=== PATIENT | male | born 1980 | race Caucasian/White ===

== ENCOUNTER 2025-05-06 15:16 | Outpatient (BNV) | payer MEDICAID, SELFPAY | END 2025-05-07 18:36 | PROVIDERS: Admitting Provider Psychiatry & Neurology Psychiatry; PCP Dentist General Practice; Visit Provider Internal Medicine Cardiovascular Disease | DX: R94.31 Abnormal electrocardiogram [ECG] [EKG] (principal); Z13.6 Encounter for screening for cardiovascular disorders | CPT/HCPCS: 93010 ==

== ENCOUNTER 2025-05-06 15:16 | Inpatient (IN) | payer OTHER, SELFPAY ==
--- OUTSIDE RECORDS SUMMARY | 2025-05-05 12:13 | XMS_ITS | Encounter Summary ---
Author Organization [facility] Address [address] [place] [address] Care Team Providers Care Survey Research Analyst Name Role Phone Physician, Pcp Unknown Primary Care Provider Eli vailable Reason for Visit * Reason Comments Suicidal Encounter Details Date Type Department Care Team (Late st Contact Info) Description 05/05/2025 12:13 PM EST - 05/06/2025 2:55 PM EST Emergency [facility] Emergency [address] [place] [id number] Radha Lares MD [address] [place] [id number] Panda Wagner MD [address] [place] [id number] Barbara Young MD [address] [place] [id number] Xavi Puri MD [address] [place] [id number] Severe episode of recurrent major depressive disorder, without psychotic features (CMS/HCC V24, CMS/HCC V28) (Primary Dx); Suicidal ideation Discharge Disposition: Psychiatric Hospital Social History Tobacco Use Types Packs/Day Years Used Date Smoking Tobacco: Never Smokeless Tobacco: Never Tobacco Cessation:Counseling Given: Not Answered Sex and Gender Information Value Date Recorded Sex Assigned at Not on file Legal Sex Male 3:43 PM EDT Gender Identity Not on file Sexual Orientation Not on file documented as of this encounter Last Filed Vital Signs Vital Sign Reading Time Taken Comments Blood Pressure 119/74 05/06/2025 1:35 PM EST Pulse 60 05/06/2025 1:35 PM EST Temperature 36.9 C (98.5 F) 05/06/2025 1:35 PM EST Respiratory Rate 16 05/06/2025 1:35 PM EST Oxygen Saturation 99% 05/06/2025 1:35 PM EST Inhaled Oxygen Concentration - - Weight 99.8 kg (220 lb) 05/05/2025 7:47 PM EST Height 177.8 cm (5' 10 ) 05/05/2025 7:47 PM EST Body Mass Index 31.57 05/05/2025 7:47 PM EST documented in this encounter Functional Status * Calculated C-SSRS Risk Score (Lifetime/Recent) Answer Date of Assessment Author Moderate Risk 05/06/2025 10:14 AM Delmis Jaramillo RN * [place] Suicide Severity Rating Scale (Screener/Recent Self-Report) Question Answer Date of Assessment Author 1. Wish to be (Past 1 Month) Yes 10:14 AM Delmis Wilkins RN 2. Non-Specific Active Suici gomez Thoughts (Past 1 Month) Yes 05/06/2025 10:14 AM Dudley Wilkins RN 3. Active Suicidal Ideation with any Methods (Not Plan) Without Intent to Act (Past 1 Month) Yes 05/06/2025 10:14 AM Delmis Hendrix lt, RN 4. Active Suicidal Ideation with Some Intent to Act, Without Specific Plan (Past 1 Month) No 05/06/2025 10:14 AM Delmis Hendrix lt, RN 5. Active Suicidal Ideation with Specific Plan and Intent (Past 1 Month) No 05/06/2025 10:14 AM Delmis Wilkins RN 6. Suicidal Behavior (Lifetime) No 10:14 AM Delmis Wilkins RN documented as of this encounter Medications at Time of Discharge buPROPion XL (FORFIVO XL) 450 mg 24 hr tablet Take 1 tablet (450 mg total) by mouth 1 (one) time each day. cyclobenzaprine (FLEXERIL) 5 mg tablet Take 1 tablet (5 mg total) by mouth 3 (three) times a day if needed for muscle spasms. hydrOXYzine pamoate (VISTARIL) 25 mg capsule Take 1 capsule (25 mg total) by mouth 2 (two) times a day if needed for anxiety. lamoTRIgine (LaMICtal) 200 mg tablet Take 1 tablet (200 mg total) by mouth 1 (one) time each day. lisinopril (PRINIVIL,ZESTRIL ) 40 mg tablet Take 1 tablet (40 mg total) by mouth 1 (one) time each day. naproxen (NAPROSYN) 500 mg tablet Take 1 tablet (500 mg total) by mouth 2 (two) times a day with meals. nicotine polacrilex (NICORETTE) [address] 1 each (4 mg total) into mouth between cheek and gum every 2 (two) hours if needed. pantoprazole (PROTONIX) 40 mg EC tablet Take 1 tablet (40 mg total) by mouth 2 (two) times a day. QUEtiapine (SEROquel) 25 mg tablet Take 1 tablet (25 mg total) by mouth 3 (three) times a day if needed. documented as of this encounter Discharge Disposition Disposition Code Departure Means Destination [facility] M 5 documented in this encounter Progress Notes * Melania Beasley LCSW - 05/06/2025 11:08 AM EST BED FOUND- Patient accepted to [facility], M3, by Dr. Pruitt, they are requesting and ETA of 3:30pm. * Barbara Young MD - 05/06/2025 8:41 AM EST Dwayne Ngo This patient's care was signed out to me by the offgoing provider. Please see her/his note for further details regarding initial presentation, history of present illness, physical exam, and medical decision making. At time of signout, the following was pending: awaiting voluntary inpatient psychiatric placement; however, crisis wants to be notified and reevaluate him if he wants to leave. ED Course as of 05/06/25 0841 Mon May 05, 2025 1341 UDS negative [AM] 1421 Patient evaluated by workers' compensation commissioner, currently desiring voluntary inpatient psychiatric care. Per crisis, patient changes his mind would require repeat crisis evaluation. [AM] 1502 Creatinine(!): 1.36 Very mildly increased from previous [AM] 1502 Ethanol Level: <3 [AM] 1550 Patient is medically cleared for psychiatric placement [AM] MonMay 06, 2025 0209 Crisis would want to speak with patient if he wants to leave. Patient is currently voluntary for admission, however, should they change their mind, they need to be re-evaluated by the Behavioral Health team to determine if that is appropriate based on their current level of risk and presentation. [EK] 0700 No acute needs during my shift. Patient's care was handed over to the oncoming provider. [EK] 0720 I, Dr. Janak Puri, have received signout for this patient from Dr. Young at 0700 hrs. The patient is currently pending inpatient psychiatric bed search. No issues during my shift. Anticipate sign out to Dr. Wagner at 1700 hrs. [MG] ED Course User Index [AM] Radha Lares MD [EK] Barbara Young MD [MG] Xavi Puri MD Clinical Impressions as of 05/06/25 0841 Severe episode of recurrent major depressive disorder, without psychotic features (CMS/[facility] V24, [facility] V28) Suicidal ideation No orders to display Labs Reviewed COMPREHENSIVE METABOLIC PANEL - Abnormal Result Value Sodium 137 Potassium 4.5 Chloride 104 CO2 28 Anion Gap 5 Glucose 93 BUN 24 Creatinine 1.36 (*) eGFR 65 BUN/Creatinine Ratio 17.6 Calcium 9.3 AST (SGOT) 21 ALT (SGPT) 42 Alkaline Phosphatase 67 Total Protein 7.3 Albumin 4.7 Total Bilirubin 0.5 ACETAMINOPHEN LEVEL - Abnormal Acetaminophen Level <2.0 (*) SALICYLATE LEVEL - Abnormal Salicylate Level <1.7 (*) CBC WITH AUTO DIFFERENTIAL - Abnormal WBC 7.0 RBC 5.30 Hemoglobin 15.2 Hematocrit 44.6 MCV 84.2 MCH 28.7 MCHC 34.1 RDW 11.9 Platelets 278 MPV 9.4 NRBC 0.0 NRBC Absolute 0.00 Neutrophils Relative 67.6 Lymphocytes Relative 24.6 Monocytes Relative 5.0 Eosinophils Relative 1.4 Basophils Relative 0.7 Immature Granulocytes Relative 0.7 Neutrophils Absolute 4.69 Lymphocytes Absolute 1.71 Monocytes Absolute 0.35 Eosinophils Absolute 0.10 Basophils Absolute 0.05 Immature Granulocytes Absolute 0.05 (*) ETHANOL - Normal Ethanol Level <3 DRUG ABUSE SCREEN 8A PANEL, URINE - Normal Amphetamine Screen, Ur Negative Barbiturate Screen, Ur Negative Benzodiazepine Screen, Ur Negative Cocaine Screen, Ur Negative Opiate Screen, Ur Negative Cannabinoid (THC) Screen, Ur Negative Oxycodone Screen, Ur Negative Fentanyl, Ur Negative Narrative: Assay cutoffs: Amphetamines 1000 ng/mL Barbiturates 200 ng/mL Benzodiazepines 200 ng/mL Cocaine 300 ng/mL Fentanyl 1 ng/mL Opiates 300 ng/mL Oxycodone 100 ng/mL THC 50 ng/mL Semi-quantitative assay for screening purposes only. Unconfirmed screening result should not be used for non-medical purposes. *ALTERNATE METHOD CONFIRMATION DONE UPON REQUEST ONLY* BUPRENORPHINE SCREEN, URINE - Normal Buprenorphine Screen Urine Negative Narrative: Assay cutoff 5 ng/mL Semi-quantitative assay for screening purposes only. Unconfirmed screening result should not be used for non-medical purposes. *ALTERNATE METHOD CONFIRMATION DONE UPON REQUEST ONLY* PHENCYCLIDINE, URINE - Normal PCP Scrn, Ur Negative METHADONE SCREEN, URINE - Normal Methadone Screen, Urine Negative CBC AND DIFFERENTIAL Narrative: The following orders were created for panel order CBC and differential. Procedure Abnormality Status --------- ------ CBC auto differential[[id number]] Abnormal Final result Please view results for these tests on the individual orders. Clinical Impression(s): Final diagnoses: [F33.2] Severe episode of recurrent major depressive disorder, without psychotic features ([facility] V24, [facility] V28) [R45.851] Suicidal ideation Send to Specialty Department Previous Medications BUPROPION XL (FORFIVO XL) 450 MG 24 HR TABLET Take 1 tablet (450 mg total) by mouth 1 (one) time each day. CYCLOBENZAPRINE (FLEXERIL) 5 MG TABLET Take 1 tablet (5 mg total) by mouth 3 (three) times a day ifneeded for muscle spasms. HYDROXYZINE PAMOATE (VISTARIL) 25 MG CAPSULE Take 1 capsule (25 mg total) by mouth 2 (two) times a day if needed for anxiety. LAMOTRIGINE (LAMICTAL) 200 MG TABLET Take 1 tablet (200 mg total) by mouth 1 (one) time each day. LISINOPRIL (PRINIVIL,ZESTRIL) 40 MG TABLET Take 1 tablet (40 mg total) by mouth 1 (one) time each day. NAPROXEN (NAPROSYN) 500 MG TABLET Take 1 tablet (500 mg total) by mouth 2 (two) times a day with meals. NICOTINE POLACRILEX (NICORETTE) [address] 1 each (4 mg total) into mouth between cheek and gumevery 2 (two) hours if needed. PANTOPRAZOLE (PROTONIX) 40 MG EC TABLET Take 1 tablet (40 mg total) by mouth 2 (two) times a day. QUETIAPINE (SEROQUEL) 25 MG TABLET Take 1 tablet (25 mg total) by mouth 3 (three) times a day if needed. ED Medication Administration from 05/05/2025 1152 to 05/06/2025 0841 Date/Time Order Dose Route Action Action by 05/05/20252046 EST cyclobenzaprine (FLEXERIL) tablet 5 mg 5 mg oral Given Uday, F 05/05/2025 204 EST hydrOXYzine pamoate (VISTARIL) capsule 25 mg 25 mg oral Given Uday, 05/05/2025 1354 EST pantoprazole (PROTONIX) EC tablet 40 mg 40 mg oral Not Given Saykin, S 05/05/2025 204 EST pantoprazole (PROTONIX) EC tablet 40 mg 40 mg oral Given Uday, F 05/05/2025 1322 EST QUEtiapine (SEROquel) tablet 25 mg 25 mg oral Not Given Saykin, S 05/05/2025 204 EST QUEtiapine (SEROquel) tablet 25 mg 25 mg oral Given Uday, F * Xavi Puri MD - 05/06/2025 7:25 AM EST ED Course as of 05/06/25 1115 Mon May 05, 2025 1341 UDS negative [AM] 1421 Patient evaluated by workers' compensation commissioner, currently desiring voluntary inpatient psychiatric care. Per crisis, patient changes his mind would require repeat crisis evaluation. [AM] 1502 Creatinine(!): 1.36 Very mildly increased from previous [AM] 1502 Ethanol Level: <3 [AM] 1550 Patient is medically cleared for psychiatric placement [AM] MonMay 06, 2025 0209 Crisis would want to speak with patient if he wants to leave. Patient is currently voluntary for admission, however, should they change their mind, they need to be re-evaluated by the Behavioral Health team to determine if that is appropriate based on their current level of risk and presentation. [EK] 0700 No acute needs during my shift. Patient's care was handed over to the oncoming provider. [EK] 0720 I, Dr. Janak Puri, have received signout for this patient from Dr. Young at 0700 hrs. The patient is currently pending inpatient psychiatric bed search. [MG] 1114 Patient accepted to [facility] during my shift, transport booked for 1530 hrs. [MG] ED Course User Index [AM] Radha Lares MD [EK] Barbara Young MD [MG] Xavi Puri MD Clinical Impressions as of 05/06/25 1115 Severe episode of recurrent major depressive disorder, without psychotic features (CMS/HCC V24, CMS/HCC V28) Suicidal ideation Send to Specialty Department 1. Severe episode of recurrent major depressive disorder, without psychotic features (CMS/HCC V24, CMS/HCC V28) 2. Suicidal ideation Procedures Dwayne Ngo * Panda Wagner MD - 05/06/2025 1:20 AM EST Dwayne Ngo Pt awaiting bed availability for voluntary psych admission. No significant events on my shift. Of note, if pt changes mind and wants to leave, Crisis requesting to re-eval pt before discharge * Cindy Malagon RN - 05/05/2025 12:13 PM EST Patient giselle coming from [facility] has been having suicidal ideation for one week without plan. Patient states he is waiting on bed at [facility]. * Radha Lares MD - 05/05/2025 11:52 AM EST Images from the original note were not included. [facility] EMERGENCY EMERGENCY DEPARTMENT ENCOUNTER Patient: Dwayne Ngo MR# [id number] Time of Service: 05/05/2025 12:13 PM History PCP: Pcp Unknown Physician. Chief Complaint Patient presents with Suicidal Dwayne Ngo is a 44 y.o. male with history of bipolar disorder who presents to the ED with chief complaint Suicidal . Patient states that his mental health has been worsening over the last 7 to 10 days. States his depression has been worsening significantly and he is having thoughts of suicide. Describes this as not wanting to be here anymore. He denies plan at this time. States that he is on multiple medications for mental health which he is compliant with but symptoms have been worsening despite this. States he has been drinking more than usual. He denies drug use, states he is been clean for 2 years. [facility] ROS Negative except for HPI. Allergies: Penicillins Medical History[1] Problem List[2] Surgical History[3] Family History[4] Social History[5] Physical Exam Vitals: 05/05/25 1233 BP: 104/77 Pulse: 100 Resp: 18 Temp: 36.4 ??C (97.5 ??F) SpO2: 99% General Appearance: No acute distress Skin: Dry Eyes: EOMI, no scleral icterus HENT: Normocephalic, atraumatic, moist mucous membranes Neck: Supple, normal range of motion Cardiovascular: Regular rate and rhythm, no murmur, 2+ radial pulses Respiratory: Lungs clear to auscultation bilaterally, no respiratory distress, no wheezing or rhonchi Abdomen: Soft, non-tender, non-distended MSK: No edema or tenderness Neurologic: Awake, alert, no obvious deficits, moving all extremities Psychiatric: Appropriate, cooperative, flat affect Results Results for orders placed or performed during the hospital encounter of 05/05/25 Drug abuse screen 8a panel, urine Collection Time: 05/05/25 12:20 PM Result Value Ref Range Amphetamine Screen, Ur Negative Negative Barbiturate Screen, Ur Negative Negative Benzodiazepine Screen, Ur Negative Negative Cocaine Screen, Ur Negative Negative Opiate Screen, Ur Negative Negative Cannabinoid (THC) Screen, Ur Negative Negative Oxycodone Screen, Ur Negative Negative Fentanyl, Ur Negative Negative Buprenorphine screen, urine Collection Time: 05/05/25 12:20 PM Result Value Ref Range Buprenorphine Screen Urine Negative Negative Phencyclidine, urine Collection Time: 05/05/25 12:20 PM Result Value Ref Range PCP Scrn, Ur Negative Negative Methadone, urine Collection Time: 05/05/25 12:20 PM Result Value Ref Range Methadone Screen, Urine Negative Negative Comprehensive metabolic panel Collection Time: 05/05/25 12:47 PM Result Value Ref Range Sodium 137 133 - 145 mmol/L Potassium 4.5 3.5 - 5.5 mmol/L Chloride 104 96 - 110 mmol/L CO2 28 21 - 32 mmol/L Anion Gap 5 3 - 11 Glucose 93 70 - 100 mg/dL BUN 24 5 - 25 mg/dL Creatinine 1.36 (H) 0.70 - 1.30 mg/dL eGFR 65 >=60 mL/min/1.73m2 BUN/Creatinine Ratio 17.6 Calcium 9.3 8.5 - 10.5 mg/dL AST (SGOT) 21 10 - 42 unit/L ALT (SGPT) 42 10 - 60 unit/L Alkaline Phosphatase 67 42 - 121 unit/L Total Protein 7.3 6.0 - 8.0 g/dL Albumin 4.7 3.2 - 5.0 g/dL Total Bilirubin 0.5 0.0 - 1.4 mg/dL Ethanol Collection Time: 05/05/25 12:47 PM Result Value Ref Range Ethanol Level <3 0 - 10 mg/dL Acetaminophen level Collection Time: 05/05/25 12:47 PM Result Value Ref Range Acetaminophen Level <2.0 (L) 10.0 - 30.0 mcg/mL Salicylate level Collection Time: 05/05/25 12:47 PM Result Value Ref Range Salicylate Level <1.7 (L) 2.0 - 29.0 mg/dL CBC auto differential Collection Time: 05/05/25 12:47 PM Result Value Ref Range WBC 7.0 4.8 - 10.8 K/mcL RBC 5.30 4.50 - 5.50 M/mcL Hemoglobin 15.2 13.5 - 17.5 g/dL Hematocrit 44.6 42.0 - 54.0 % MCV 84.2 79.0 - 98.0 FL MCH 28.7 27.0 - 32.0 pcg MCHC 34.1 32.0 - 37.0 g/dL RDW 11.9 11.0 - 15.0 % Platelets 278 130 - 400 K/mcL MPV 9.4 7.0 - 11.0 FL NRBC 0.0 <1.0 % NRBC Absolute 0.00 <0.10 K/mcL Neutrophils Relative 67.6 % Lymphocytes Relative 24.6 % Monocytes Relative 5.0 % Eosinophils Relative 1.4 % Basophils Relative 0.7 % Immature Granulocytes Relative 0.7 % Neutrophils Absolute 4.69 1.50 - 7.00 K/mcL Lymphocytes Absolute 1.71 1.00 - 5.00 K/mcL Monocytes Absolute 0.35 0.20 - 1.00 K/mcL Eosinophils Absolute 0.10 0.00 - 0.50 K/mcL Basophils Absolute 0.05 0.00 - 0.20 K/mcL Immature Granulocytes Absolute 0.05 (H) 0.00 - 0.03 K/mcL No orders to display Procedures Medical Decision Making 44-year-old male presenting due to suicidal ideation and worsening depression despite medication compliance. Plan for psychiatric screening labs, will have crisis evaluate. Labs ordered in ED independently reviewed by me. My interpretation of the labs and/or imaging per ED course. Medications Administered Medications cyclobenzaprine (FLEXERIL) tablet 5 mg (has no administration in time range) naproxen (NAPROSYN) tablet 500 mg (has no administration in time range) hydrOXYzine pamoate (VISTARIL) capsule 25 mg (has no administration in time range) buPROPion XL (WELLBUTRIN XL) 24 hr tablet 450 mg (has no administration in time range) lamoTRIgine (LaMICtal) tablet 200 mg (has no administration in time range) lisinopriL (PRINIVIL,ZESTRIL) tablet 40 mg (has no administration in time range) nicotine polacrilex (NICORETTE) gum 4 mg (has no administration in time range) pantoprazole (PROTONIX) EC tablet 40 mg (40 mg oral Not Given 05/05/25 0974) QUEtiapine (SEROquel) tablet 25 mg (25 mg oral Not Given 05/05/25 1322) ED Course as of 05/05/251923 Mon May 05, 2025 1341 UDS negative [AM] 1421 Patient evaluated by workers' compensation commissioner, currently desiring voluntary inpatient psychiatric care. Per crisis, patient changes his mind would require repeat crisis evaluation. [AM] 1502 Creatinine(!): 1.36 Very mildly increased from previous [AM] 1502 Ethanol Level: <3 [AM] 1550 Patient is medically cleared for psychiatric placement [AM] ED Course User Index [AM] Radha Lares MD Clinical Impressions as of 05/05/251923 Severe episode of recurrent major depressive disorder, without psychotic features (CMS/HCC V24, CMS/HCC V28) Suicidal ideation External Charts Reviewed: medication list Discussed management with other providers: transfer and line up worker Disposition: Pending inpatient psych CLINICAL IMPRESSION: 1. Severe episode of recurrent major depressive disorder, without psychotic features (CMS/HCC V24, CMS/HCC V28) 2. Suicidal ideation 05/05/2025 MD Radha Gurrola MD 05/05/25 1235 Radha Lares MD 05/05/25 1422 [1] Past Medical History: Diagnosis Date Hypertension [2] There is no problem list on file for this patient. [3] History reviewed. No pertinent surgical history. [4] No family history on file. [5] Social History Tobacco Use Smoking status: Never Smokeless tobacco: Never Radha Lares MD 05/05/251923 documented in this encounter Consult Notes * Kelsi Villaseñor - 05/05/2025 2:15 PM ESTAssociated Order(s): IP CONSULT TO HOSPITAL EDUCATOR Images from the original note were not included. Behavioral Health Services - Crisis Assessment Important times Time of arrival: 12:08 Time of referral: 12:30 Time of readiness: 13:00 Time assessment started: 13:15 Time of disposition: 14:00 Location: [facility] ED Consulted case with: Melania Beasley LCSW Insurance information: Insurance: [facility] Verified by: Melania Beasley - [facility] [place] Reason for Consultation / Presenting Problem: Dwayne Ngo is being seen today for a consultive service at the request of Radha Lares MD to assess risk and identify appropriate level of care. Patient reports feeling depressed and low. Patient states, I do not want to wake up, I don't want to bearound. Patient states, I don't know how to say it, I don't have a specific plan. I'm really low.I hate myself. Patient has made two prior attempts over twenty years ago. Once by taking medication and the other by carbon monoxide. When asked if patient has thoughts of hurting anyone else, patient replied no. Patient denies auditory and visual hallucinations. Patient states, when I get likethis I just know I need to be somewhere safe. Staff at [facility] where patient has been a resident for over a year are also recommending inpatient treatment. History of Present Illness: Dwayne is a 44 y.o. male with Chief Complaint Patient presents with Suicidal Social/Educational History: Guardian - if Yes, provide contact information: self Status: none State Agency Involvement: midway through [facility] application Bhupinder's Order: none Marital Status: single Alternative Placement Details: none Living Situation for patient: [facility] Resident for over a year. [phone] Friendships/Family/Social Peer Support/Relationships: None reported Highest level of education: Some college Comments (Include Learning Needs): None reported Occupation: None reported Employment/Extracurricular Activities/Hobbies: None reported Limitations of Daily Activities: None reported Strengths/Supports: Patient is helpseeking and has maintained engagement with residential and outpatient providers for over a year. Collaterals, contact information, and engagement level: Therapist: Eleni Portillo - Biweekly through [facility]. Next appointment on the 05/16 last saw a week ago. Psychiatrist: Psychiatric Nurse Practicioner through [facility]. PCP: Dr. Blanco from [facility]. Dr. Haroired believe case being transferred within [facility]. Family: not reported Other: not reported Contacted counselor at the [facility], Ata Cho [phone]. He states that patient has been preoccupied and depressed lately. He has not been as engaged as previously. Alluded to April being a time of year of previous trauma for patient, during which patient typically struggles. Stated clinical director and staff were recommending inpatient treatment and tried to admit patient directly to [facility] who referred to [facility] for medical clearance. Spoke with intake staff at [facility], who did not have record of patient as an intake. No crisis assessment of patient from [facility]. [facility] Crisis [phone] has assessed patient three times in 2023. Last two were a part of the co-response team when patient called himself due to suicidal ideation. [facility]. Patient similarly reported depressed mood, and suicidal ideation with no active plan. Patient denied auditory and visual hallucinations then, but appeared to be responding to internal stimuli. Patient was transported to [facility] for most recent previous assessment. Mental Status Speech: WNL Eye Contact: WNL Motor Activity: WNL Mood: Depressed, Pleasant Affect: Flat Sleep: WNL I sleep well Appetite: Poor It's lower than normal. I have been eating less. Memory: Mild Impairment Attention / Concentration: WNL Behavior: Cooperative and Calm Appearance: Appears stated age Hallucinations: None Delusions: None Thought Content: WNL SI: Presence and past attempts. Currently displaying depressed mood and ideation without specific plan. I don't want to be here anymore. I just want to go to sleep and never wake up. I don't have a planspecifically, but I just know when I get like this I need to be somewhere safe. HI: Denied Thought Process: WNL Orientation Impairment: None Insight: WNL Judgment: WNL Impulse Control: WNL Substance Use History (Including family history): 10 years ago patient reports using opiates and cocaine. A year and half ago patient reports stopping drinking alcohol and using cannabis. Patient reports he is in a zero tolerance housing program andhas maintained his sobriety. Previous assessment reports father struggled with unspecified addiction. Utox Results: Negative for all substances and BAL <3 Substance Use Treatment History: In [facility] [place] presently Mental Health Treatment History: Outpatient Mental Health Treatment: Patient sees a therapist named Eleni Hammond and has for over a year through [facility]. Patient also reports seeing a psychiatric nurse practicioner for psychiatric medications. Previous or Current Psychological Diagnosis: Bipolar Disorder (patient reports previous diagnoses),Depression Prior Psychiatric Hospitalizations/Residential Treatment Facilities: I've been lots of places [facility] x3 Other Comments Regarding Mental Health Treatment History: None reported Mental Health Concerns in Family: Previous assessment indicates mother had mental health issues. Trauma History: Previous reports indicate trauma around housing Medications: Scheduled Meds: MEDSSCHEDULED[1] Continuous Infusions: MEDSCONTINUOUS[2] PRN Meds: MEDSPRN[3] Risk Assessment: Self-Harm: None Suicidal Behavior: Past Two attempts over 20 years ago once by pill overdose and once by carbon monoxide poisoning. Homicidal Behavior: None Physical Assault: None Physical Aggression: None Property Damage: None Verbal Aggression: None Family history of suicide: Patient states no family members have attempted suicide. Protective Factors: Patient is help seeking and has maintained engagement with the [facility] [place] for over a year. Patient has also seen a therapist for over a year. Risk Factors: Past attempts, ideation, mental illness, history of problematic opiate and alcohol use. Suicide Risk: Based on patient's history and current presentation, their level of risk for intentional lethal harm is considered Low Safety Plan Completed: no Patient will remain a voluntary inpatient bed search and will be reassessed if he elects to discharge. Interventions: Risk assessment, active and empathetic listening, validation, collateral contracts Response to interventions: Patient maintained focus and even affect while answering questions. DSM-5TR Diagnosis: F33.2 Major depressive disorder, recurrent, severe without psychotic features Plan: Patient meets criteria for inpatient hospitalization for safety and containment, mood stabilization, medication evaluation, individual and group therapies, and connection to community providers. Patient is currently voluntary for admission, however, should they change their mind, they need to be re-evaluated by the Behavioral Health team to determine if that is appropriate based on their current level of risk and presentation. Recommendations were discussed with requesting provider. It was a pleasure to assist Dwayne Ngo here at [facility]. This report is written and finalized by: DEJUAN Burton Circuit[employer] Negative Inspector Supervised by Michelle Gonsalez [facility] Behavioral Health Specialist [facility] (Tel): [phone] / : [phone] [1] [START ON 05/06/2025] buPROPion XL, 450 mg, oral, Daily [START ON 05/06/2025] lamoTRIgine, 200 mg, oral, Daily [START ON 05/06/2025] lisinopril, 40 mg, oral, Daily pantoprazole, 40 mg, oral, BID QUEtiapine, 25 mg, oral, TID [2] [3] PRN medications: cyclobenzaprine, hydrOXYzine pamoate, naproxen, nicotine polacrilex Cosigned by TARSHA Zaldivar at 05/05/2025 5:05 PM EST documented in this encounter Plan of Treatment Pending Results Name Type Priority Associated Diagnoses Date /Time ECG 12 lead ECG STAT 05/06/2025 10 :02 AM EST documented as of this encounter Procedures Procedure Name Priority Date/Time Associated Diagnosis Comments ECG 12-LEAD STAT 05/06/2025 10:02 AM EST CBC WITH AUTO DIFFERENTIAL STAT 05/05/2025 12:47 PM EST CBC AND DIFFERENTIAL STAT 05/05/2025 12:47 PM EST ETHANOL STAT 05/05/2025 12:47 PM EST ACETAMINOPHEN LEVEL STAT 05/05/2025 1 2:47 PM EST SALICYLATE LEVEL STAT 05/05/2025 12:4 7 PM EST COMPREHENSIVE METABOLIC PANEL STAT 05/05/2025 12:47 PM EST DRUG ABUSE SCREEN 8A PANEL, URINE STAT 05/05/2025 12:20 PM EST BUPRENORPHINE SCREEN, URINE STAT 05/05/2025 12:20 PM EST METHADONE SCREEN, URINE STAT 05/05/2025 12:20 PM EST PHENCYCLIDINE, URINE STAT 05/05/2025 12:20 PM EST documented in this encounter Results * (ABNORMAL) CBC auto differential (05/05/2025 12:47 PM EST) [facility] WBC 7.0 4.8 - 10.8 K/mcL LAB HEMETOLOGY METHOD 05/05/2025 1:39 PM [facility] RBC 5.30 4.50 - 5.50 M/mcL LAB HEMETOLOGY METHOD 05/05/2025 1:39 PM [facility] Hemoglobin 15.2 13.5 - 17.5 g/dL LAB HEMETOLOGY METHOD 05/05/2025 1:39 PM [facility] Hematocrit 44.6 42.0 - 54.0 % LAB HEMETOLOGY METHOD 05/05/2025 1:39 PM [facility] MCV 84.2 79.0 - 98.0 FL LAB HEMETOLOGY METHOD 05/05/2025 1:39 PM [facility] MCH 28.7 27.0 - 32.0 pcg LAB HEMETOLOGY METHOD 05/05/2025 1:39 PM [facility] MCHC 34.1 32.0 - 37.0 g/dL LAB HEMETOLOGY METHOD 05/05/2025 1:39 PM [facility] RDW 11.9 11.0 - 15.0 % LAB HEMETOLOGY METHOD 05/05/2025 1:39 PM [facility] Platelets 278 130 - 400 K/mcL LAB HEMETOLOGY METHOD 05/05/2025 1:39 PM [facility] MPV 9.4 7.0 - 11.0 FL LAB HEMETOLOGY METHOD 05/05/2025 1:39 PM [facility] NRBC 0.0 <1.0 % LAB HEMETOLOGY METHOD 05/05/2025 1:39 PM [facility] NRBC Absolute 0.00 <0.10 K/mcL LAB HEMETOLOGY METHOD 05/05/2025 1:39 PM [facility] Neutrophils Relative 67.6 % LAB HEMETOLOGY METHOD 05/05/2025 1:39 PM [facility] Lymphocytes Relative 24.6 % LAB HEMETOLOGY METHOD 05/05/2025 1:39 PM [facility] Monocytes Relative 5.0 % LAB HEMETOLOGY METHOD 05/05/2025 1:39 PM [facility] Eosinophils Relative 1.4 % LAB HEMETOLOGY METHOD 05/05/2025 1:39 PM [facility] Basophils Relative 0.7 % LAB HEMETOLOGY METHOD 05/05/2025 1:39 PM [facility] Immature Granulocytes Relative 0.7 % LAB HEMETOLOGY METHOD 05/05/2025 1:39 PM [facility] Neutrophils Absolute 4.69 1.50 - 7.00 K/mcL LAB HEMETOLOGY METHOD 05/05/2025 1:39 PM [facility] Lymphocytes Absolute 1.71 1.00 - 5.00 K/mcL LAB HEMETOLOGY METHOD 05/05/2025 1:39 PM [facility] Monocytes Absolute 0.35 0.20 - 1.00 K/mcL LAB HEMETOLOGY METHOD 05/05/2025 1:39 PM [facility] Eosinophils Absolute 0.10 0.00 - 0.50 K/mcL LAB HEMETOLOGY METHOD 05/05/2025 1:39 PM [facility] Basophils Absolute 0.05 0.00 - 0.20 K/mcL LAB HEMETOLOGY METHOD 05/05/2025 1:39 PM [facility] Immature Granulocytes Absolute 0.05(H) 0.00 - 0.03 K/mcL LAB HEMETOLOGY METHOD 05/05/2025 1:39 PM [facility] Blood Venous blood specimen / Unknown Venipuncture / Unknown 05/05/2025 12:47 PM EST 05/05/2025 1:17 PM EST us Radha Lares MD LAB BLOOD ORDERABLES Final Resul t Performing Organization Address City/[facility]/ZIP Co de Phone Number [facility] [address] [place] [address], [place] [phone] * (ABNORMAL) Salicylate level (05/05/2025 12:47 PM EST) Salicylate Level <1.7(L) 2.0 - 29.0 mg/dL LAB CHEMISTRY METHOD 05/05/2025 2:44 PM EST [facility] Blood Venous blood specimen / Unknown Venipuncture / Unknown 05/05/2025 12:47 PM EST 05/05/2025 1:17 PM EST us Radha Lares MD LAB BLOOD ORDERABLES Final Resul t Performing Organization Address City/[facility]/ZIP Co de Phone Number [facility] [address] [place] [address], [place] [phone] * (ABNORMAL) Acetaminophen level (05/05/2025 12:47 PM EST) Acetaminophen Level <2.0(L) 10.0 - 30.0 mcg/mL LAB CHEMISTRY METHOD 05/05/2025 3:07 PM EST [facility] Blood Venous blood specimen / Unknown Venipuncture / Unknown 05/05/2025 12:47 PM EST 05/05/2025 1:17 PM EST us Radha Lares MD LAB BLOOD ORDERABLES Final Resul t Performing Organization Address City/[facility]/ZIP Co de Phone Number [facility] [address] [place] [address], [place] [phone] * Ethanol (05/05/2025 12:47 PM EST) Ethanol Level <3 0 - 10 mg/dL LAB CHEMISTRY METHOD 05/05/2025 2:44 PM [facility] Blood Venous blood specimen / Unknown Venipuncture / Unknown 05/05/2025 12:47 PM EST 05/05/2025 1:17 PM EST us Radha Lares MD LAB BLOOD ORDERABLES Final Resul t [facility] [address] [place] [address], * (ABNORMAL) Comprehensive metabolic panel (05/05/2025 12:47 PM EST) [facility] Sodium 137 133 - 145 mmol/L LAB CHEMISTRY METHOD 05/05/2025 2:47 PM [facility] Potassium 4.5 3.5 - 5.5 mmol/L LAB CHEMISTRY METHOD 05/05/2025 2:47 PM [facility] Chloride 104 96 - 110 mmol/L LAB CHEMISTRY METHOD 05/05/2025 2:47 PM [facility] CO2 28 21 - 32 mmol/L LAB CHEMISTRY METHOD 05/05/2025 2:47 PM [facility] Anion Gap 5 3 - 11 LAB CHEMISTRY METHOD 05/05/2025 2:47 PM [facility] Glucose 93 70 - 100 mg/dL LAB CHEMISTRY METHOD 05/05/2025 2:47 PM [facility] BUN 24 5 - 25 mg/dL LAB CHEMISTRY METHOD 05/05/2025 2:47 PM [facility] Creatinine 1.36(H) 0.70 - 1.30 mg/dL LAB CHEMISTRY METHOD 05/05/2025 2:47 PM [facility] eGFR 65 >=60 mL/min/1. 73m2 LAB CHEMISTRY METHOD 05/05/2025 2:47 PM [facility] Comment:Calculation based on the Chronic Kidney Disease Epidemiology Collaboration (CKD-EPI) equation refit without adjustment for race. BUN/Creatinine Ratio 17.6 LAB CHEMISTRY METHOD 05/05/2025 2:47 PM [facility] Calcium 9.3 8.5 - 10.5 mg/dL LAB CHEMISTRY METHOD 05/05/2025 2:47 PM [facility] AST (SGOT) 21 10 - 42 unit/L LAB CHEMISTRY METHOD 05/05/2025 2:47 PM [facility] ALT (SGPT) 42 10 - 60 unit/L LAB CHEMISTRY METHOD 05/05/2025 2:47 PM [facility] Alkaline Phosphatase 67 42 - 121 unit/L LAB CHEMISTRY METHOD 05/05/2025 2:47 PM [facility] Total Protein 7.3 6.0 - 8.0 g/dL LAB CHEMISTRY METHOD 05/05/2025 2:47 PM [facility] Albumin 4.7 3.2 - 5.0 g/dL LAB CHEMISTRY METHOD 05/05/2025 2:47 PM [facility] Total Bilirubin 0.5 0.0 - 1.4 mg/dL LAB CHEMISTRY METHOD 05/05/2025 2:47 PM [facility] Blood Venous blood specimen / Unknown Venipuncture / Unknown 05/05/2025 12:47 PM EST 05/05/2025 1:17 PM EST us Radha Lares MD LAB BLOOD ORDERABLES Final Resul t [facility] [address] [place] [address], * Methadone, urine (05/05/2025 12:20 PM EST) Methadone Screen, Urine Negative Negative LAB CHEMISTRY METHOD 05/05/2025 1:15 PM EST [facility] Comment: Assay cutoff 300 ng/mL Semi-quantitative assay for screening purposes only. Unconfirmed screening result should not be used for non-medical purposes. *ALTERNATE METHOD CONFIRMATION DONE UPON REQUEST ONLY* Urine Urine specimen obtained by clean catch procedure / Unknown Non-blood Collection / Unknown 05/05/2025 12:20 PM EST 05/05/2025 12:36 PM EST us Radha Lares MD LAB URINE ORDERABLES Final Resul t Performing Organization Address [facility] de Phone Number [facility] [address] [place] [address], [place] [phone] * Phencyclidine, urine (05/05/2025 12:20 PM EST) PCP Scrn, Ur Negative Negative LAB CHEMISTRY METHOD 05/05/2025 1:15 PM EST [facility] Comment: Assay cutoff 25 ng/mL Semi-quantitative assay for screening purposes only. Unconfirmed screening result should not be used for non-medical purposes. *ALTERNATE METHOD CONFIRMATION DONE UPON REQUEST ONLY* Urine Urine specimen obtained by clean catch procedure / Unknown Non-blood Collection / Unknown 05/05/2025 12:20 PM EST 05/05/2025 12:36 PM EST us Radha Lares MD LAB URINE ORDERABLES Final Resul t Performing Organization Address [facility] de Phone Number [facility] [address] [place] [address], [place] [phone] * Buprenorphine screen, urine (05/05/2025 12:20 PM EST) Buprenorphine Screen Urine Negative Negative LAB CHEMISTRY METHOD 05/05/2025 1:15 PM EST [facility] Urine Urine specimen obtained by clean catch procedure / Unknown Non-blood Collection / Unknown 05/05/2025 12:20 PM EST 05/05/2025 12:36 PM EST Narrative [facility] - 05/05/2025 1:15 PM EST Assay cutoff 5 ng/mL Semi-quantitative assay for screening purposes only. Unconfirmed screening result should not be used for non-medical purposes. *ALTERNATE METHOD CONFIRMATION DONE UPON REQUEST ONLY* Radha Lares MD LAB URINE ORDERABLES Final Resul t [facility] [address] [place] [address], * Drug abuse screen 8a panel, urine (05/05/2025 12:20 PM EST) Amphetamine Screen, Ur Negative Negative LAB CHEMISTRY METHOD 05/05/2025 1:15 PM EST [facility] Comment:Certain OTC medicati ons containing ephedrine, phenylephrine, pseudoephedrine and phenylpropanolamine can cause false positive results. Barbiturate Screen, Ur Negative Negative LAB CHEMISTRY METHOD 05/05/2025 1:15 PM EST [facility] Benzodiazepine Screen, Ur Negative Negative LAB CHEMISTRY METHOD 05/05/2025 1:15 PM EST [facility] Cocaine Screen, Ur Negative Negative LAB CHEMISTRY METHOD 05/05/2025 1:15 PM EST [facility] Opiate Screen, Ur Negative Negative LAB CHEMISTRY METHOD 05/05/2025 1:15 PM EST [facility] Cannabinoid (THC) Screen, Ur Negative Negative LAB CHEMISTRY METHOD 05/05/2025 1:15 PM EST [facility] Comment:Specimens from patie nts taking pantoprazole sodium (Protonix) have been shown to produce false positive results. Oxycodone Screen, Ur Negative Negative LAB CHEMISTRY METHOD 05/05/2025 1:15 PM EST [facility] Fentanyl, Ur Negative Negative LAB CHEMISTRY METHOD 05/05/2025 1:15 PM [facility] Urine Urine specimen obtained by clean catch procedure / Unknown Non-blood Collection / Unknown 05/05/2025 12:20 PM EST 05/05/2025 12:36 PM EST Narrative [facility] ([facility]) [facility] - 05/05/2025 1:15 PM EST Assay cutoffs: Amphetamines 1000 ng/mL Barbiturates 200 ng/mL Benzodiazepines 200 ng/mL Cocaine 300 ng/mL Fentanyl 1 ng/mL Opiates 300 ng/mL Oxycodone 100 ng/mL THC 50 ng/mL Semi-quantitative assay for screening purposes only. Unconfirmed screening result should not be used for non-medical purposes. *ALTERNATE METHOD CONFIRMATION DONE UPON REQUEST ONLY* us Radha Lares MD LAB URINE ORDERABLES Final Resul t [facility] ([facility]) [facility] [address] [place] [address], documented in this encounter Visit Diagnoses Diagnosis Severe episode of recurrent major depressive disorder, without psychotic features (CMS/HCC V24, CMS/HCC V28)- Primary Suicidal ideation documented in this encounter Administered Medications Inactive Administered Medications - up to 3 most recent administrations Medication Order MAR Action Action Date Dose Rate Site buPROPion XL (WELLBUTRIN XL) 24 hr tablet 450 mg 450 mg, oral, Daily, First dose on Mon05/06/25 at 0900, Do not crush, chew, or split. Given 05/06/2025 8:45 AM EST 450 mg cyclobenzaprine (FLEXERIL) tablet 5 mg 5 mg, oral, 3 times daily PRN, muscle spasms, Starting on Mon05/05/25 at 1236 Given 05/05/2025 8:47 PM EST 5 mg hydrOXYzine pamoate (VISTARIL) capsule 25 mg 25 mg, oral, 2 times daily PRN, itching, Starting on Mon05/05/25 at 1237 Given 05/05/2025 8:47 PM EST 25 mg lamoTRIgine (LaMICtal) tablet 200 mg 200 mg, oral, Daily, First dose on Mon05/06/25 at 0900 Given 05/06/2025 8:46 AM EST 200 mg lisinopriL (PRINIVIL,ZESTRIL) tablet 40 mg 40 mg, oral, Daily, First dose on Mon05/06/25 at 0900 Given 05/06/2025 8:46 AM EST 40 mg naproxen (NAPROSYN) tablet 500 mg 500 mg, oral, 2 times daily PRN, mild pain, Starting on Mon05/05/25 at 1236 pantoprazole (PROTONIX) EC tablet 40 mg 40 mg, oral, 2 times daily, First dose on Mon05/05/25 at 1305, Do not crush, chew, or split. Given 05/06/2025 8:46 AM EST 40 mg Given 05/05/2025 8:41 PM EST 40 mg QUEtiapine (SEROquel) tablet 25 mg 25 mg, oral, 3 times daily, First dose on Mon05/05/25 at 1400 Given 05/06/2025 8:46 AM EST 25 mg Given 05/05/2025 8:41 PM EST 25 mg documented in this encounter Historical Medications * This list may reflect changes made after this encounter. pantoprazole (PROTONIX) 40 mg EC tablet Take 1 tablet (40 mg total) by mouth 2 (two) times a day. QUEtiapine (SEROquel) 25 mg tablet Take 1 tablet (25 mg total) by mouth 3 (three) times a day if needed. nicotine polacrilex (NICORETTE) [address] 1 each (4 mg total) into mouth between cheek and gum every 2 (two) hours if needed. naproxen (NAPROSYN) 500 mg tablet Take 1 tablet (500 mg total) by mouth 2 (two) times a day with meals. lisinopril (PRINIVIL,ZESTRIL ) 40 mg tablet Take 1 tablet (40 mg total) by mouth 1 (one) time each day. lamoTRIgine (LaMICtal) 200 mg tablet Take 1 tablet (200 mg total) by mouth 1 (one) time each day. hydrOXYzine pamoate (VISTARIL) 25 mg capsule Take 1 capsule (25 mg total) by mouth 2 (two) times a day if needed for anxiety. cyclobenzaprine (FLEXERIL) 5 mg tablet Take 1 tablet (5 mg total) by mouth 3 (three) times a day if needed for muscle spasms. buPROPion XL (FORFIVO XL) 450 mg 24 hr tablet Take 1 tablet (450 mg total) by mouth 1 (one) time each day. added in this encounter Active and Recently Administered Medications Due to Daylight Saving Time, this section may contain times in both EDT and EST. Scheduled Medication Order 05/04/2025 05/05/2025 05/06/2025 buPROPion XL (WELLBUTRIN XL) 24 hr tablet 450 mg 450 mg, oral, Daily, First dose on Mon05/06/25 at 0900, Do not crush, chew, or split. 0845 (Given - Provid er: Delmis Martinez RN) lamoTRIgine (LaMICtal) tablet 200 mg 200 mg, oral, Daily, First dose on Mon05/06/25 at 0900 0846 (Given - Provid er: Delmis Martinez, JUSTINE) lisinopriL (PRINIVIL,ZESTRIL) tablet 40 mg 40 mg, oral, Daily, First dose on Mon05/06/25 at 0900 0846 (Given - Provid er: Delmis Martinez RN) pantoprazole (PROTONIX) EC tablet 40 mg 40 mg, oral, 2 times daily, First dose on Mon05/05/25 at 1305, Do not crush, chew, or split. 1354 (Not Given - Provider: Cindy Malagon RN - Reason: Other - Comment: pateint took prior to arrival)2040 (Given - Provider: Dennys Frye RN) 0846 (Given - Provider: Delmis Martinez, JUSTINE) QUEtiapine (SEROquel) tablet 25 mg 25 mg, oral, 3 times daily, First dose on Mon05/05/25 at 1400 1322 (Not Given - Provider: Cindy Malagon RN - Reason: Patient/Resident/Agent refused - education provided - Comment: states he only takes med at [facility])2040 (Given - Provider: Dennys Frye RN) 0846 (Given - Provider: Delmis Martinez, JUSTINE)1332 (Not Given - Provider: Delmis Martinez RN - Reason: Patient/Resident/Agent refused - education provided - Comment: states takes it later in day) PRN Medication Order 05/04/2025 05/05/2025 05/06/2025 cyclobenzaprine (FLEXERIL) tablet 5 mg 5 mg, oral, 3 times daily PRN, muscle spasms, Starting on Mon05/05/25 at 1236 2047 (Given - Provider: Lázaro Frye RN) hydrOXYzine pamoate (VISTARIL) capsule 25 mg 25 mg, oral, 2 times daily PRN, itching, Starting on Mon05/05/25 at 1237 2047 (Given - Provider: Lázaro Frye RN) naproxen (NAPROSYN) tablet 500 mg 500 mg, oral, 2 times daily PRN, mild pain, Starting on Mon05/05/25 at 1236 nicotine polacrilex (NICORETTE) gum 4 mg 4 mg, buccal, Every 2 hours PRN, smoking cessation, Starting on Mon05/05/25 at 1304 documented in this encounter Orders Medications Ordered That Edgar ht Not Have Been Administered Count Last Ordered Date First Ordered Date naproxen (NAPROSYN) tablet 500 mg 1 025 nicotine polacrilex (NICORETTE) gum 4 mg 1 05/05/2025 Consult Count Last Ordered Date First Orde red Date IP CONSULT TO HOSPITAL EDUCATOR 1 05/05/2025 documented in this encounter Care Teams Survey Research Analyst Relationship Specialty Start Date End Date Physician, Pcp Unknown PCP - General 05/05/25 documented as of this encounter
[2025-05-06 16:24] VITALS: BMI 29.1
[2025-05-06 16:49] VITALS: BP 118/66; PULSE 100; RESP 16
--- NOTE | 2025-05-06 17:00 | PC.NURSE ---
Paco was admitted to [facility] at 1525 from [facility] ED for treatment of mood disorder with suicidal ideation. Pt reports he is compliant with prescribed meds, appointments with outpt providers and has maintained sobriety. It's more of a seasonal thing. Changing my meds doesn't help. I just sometimes need a little time in the hospital. Paco reports hx of multiple inpt stays at [facility]. He is currently in the process of getting [facility] services in place. Paco resides at [facility] and is anxious about losing his bed while he is in the hospital. On admission Paco is calm, pleasant and cooperative with admission process. He is fully oriented and denies ideation, plan or intent to harm self or others on the unit. Mood is depressed. Affect is constricted He denies current or hx of hallucinations. He does not appear overtly psychotic. Thought process is slowed but linear. Paco reports poor appetite with 10 lb weight loss. Sleep is good with medications Pt has a hx of substance issues - but has remained clean and sober x the last 1 year. Tox Screen was negative. Paco has hypertension controlled with medications and denies other medical issues. He denies current physical complaint
--- OUTSIDE RECORDS SUMMARY | 2025-05-06 18:09 | XMS_ITS | Clinical Summary ---
Author Organization [facility] Address [address] [place] [address] Phone Care Team Providers Care Hazardous Substances Scientist Name Role Phone Physician, Pcp Unknown Primary Care Provider Eli vailable Allergies Active Allergy Reactions Criticality Noted Date Comments Penicillins Anaphylaxis,Swelling High 10/25/2023 Swelling in throat Medications buPROPion XL (FORFIVO XL) 450 mg 24 hr tablet Take 1 tablet (450 mg total) by mouth 1 (one) time each day. Active cyclobenzaprine (FLEXERIL) 5 mg tablet Take 1 tablet (5 mg total) by mouth 3 (three) times a day if needed for muscle spasms. Active hydrOXYzine pamoate (VISTARIL) 25 mg capsule Take 1 capsule (25 mg total) by mouth 2 (two) times a day if needed for anxiety. Active lamoTRIgine (LaMICtal) 200 mg tablet Take 1 tablet (200 mg total) by mouth 1 (one) time each day. Active lisinopril (PRINIVIL,ZESTR IL) 40 mg tablet Take 1 tablet (40 mg total) by mouth 1 (one) time each day. Active naproxen (NAPROSYN) 500 mg tablet Take 1 tablet (500 mg total) by mouth 2 (two) times a day with meals. Active nicotine polacrilex (NICORETTE) [address] 1 each (4 mg total) into mouth between cheek and gum every 2 (two) hours if needed. Active QUEtiapine (SEROquel) 25 mg tablet Take 1 tablet (25 mg total) by mouth 3 (three) times a day if needed. Active pantoprazole (PROTONIX) 40 mg EC tablet Take 1 tablet (40 mg total) by mouth 2 (two) times a day. Active Encounters Date Type Department Care Team Description 05/05/2025 12:13 PM EST - 05/06/2025 2:55 PM EST Emergency [facility] Emergency [address] [place] [address] Radha Lares MD Wyman, Tim, MD Kokkinos, Erika, MD Goebel, Mathew, MD Severe episode of recurrent major depressive disorder, without psychotic features (CMS/HCC V24, CMS/HCC V28) (Primary Dx); Suicidal ideation Discharge Disposition: [facility] 03/17/2025 12:44 PM EDT - 03/17/2025 1:35 PM EDT Emergency [facility] Emergency [address] [place] [id number] Mike Hernandez MD Tonsillitis (Primary Dx) Discharge Disposition: Home or Self Care from Last 3 Months Medical History Medical History Date Comments Hypertension Social History Tobacco Use Types Packs/Day Years Used Date Smoking Tobacco: Never Smokeless Tobacco: Never Tobacco Cessation:Counseling Given: Not Answered Sex and Gender Information Value Date Recorded Sex Assigned at Not on file Legal Sex Male 3:43 PM EDT Gender Identity Not on file Sexual Orientation Not on file Obstetrics History Last Filed Vital Signs Vital Sign Reading [...] Mass Index 31.57 05/05/2025 7:47 PM EST Plan of Treatment Health Maintenance Due Date Last Done Comments Colorectal Cancer Screening: Colonoscopy 1978 DTaP,Tdap,and Td Vaccines (1 - Tdap) 1997 Hepatitis A Vaccines (1 of 2 - Risk 2-dose series) 1997 Hepatitis B Vaccines (1 of 3 - 19+ 3-dose series) 1997 HIV Screening 04/11/2024 Social Influencers of Health Screening 04/11/2024 Depression Screening 07/03/2024 COVID-19 Vaccine (1 - 2023-2 5 season) 2025 Influenza Vaccine (#1) 2025 Hypertension/CHF/CAD Annual BMP Blood Test 05/05/2026 05/05/2025, 06/07/2024, 10/31/2023 Cholesterol Screening (Lipid Panel) 06/07/2029 06/07/2024, 10/31/2023 RSV Immunization Adult Patients (1 - 1-dose 75+ series) 2053 Hepatitis C Screening Completed 10/31/2023 HIB Vaccines Aged Out No longer eligi ble based on patient's age to complete this topic HPV Vaccines Aged Out No longer eligi ble based on patient's age to complete this topic IPV Vaccines Aged Out No longer eligi ble based on patient's age to complete this topic MMR Vaccines Aged Out No longer eligi ble based on patient's age to complete this topic Meningococcal ACWY Vaccine Aged Out N o longer eligible based on patient's age to complete this topic Meningococcal B Vaccine Aged Out No l onger eligible based on patient's age to complete this topic Pneumococcal Vaccine: Pediatrics (0 to 5 Years) and At-Risk Patients (6 to 49 Years) Aged Out No longer eligible b ased on patient's age to complete this topic RSV Immunization Patients Under 20 months Aged Out No longer eligible b ased on patient's age to complete this topic Varicella Vaccines Aged Out No longer eligible based on patient's age to complete this topic Procedures Procedure Name Priority Date/Time Associated Diagnosis Comments ECG 12-LEAD STAT 05/06/2025 10:02 AM EST CBC WITH AUTO DIFFERENTIAL STAT 05/05/2025 12:47 PM EST SALICYLATE LEVEL STAT 05/05/2025 12:4 7 PM EST ACETAMINOPHEN LEVEL STAT 05/05/2025 1 2:47 PM EST ETHANOL STAT 05/05/2025 12:47 PM EST COMPREHENSIVE METABOLIC PANEL STAT 05/05/2025 12:47 PM EST CBC AND DIFFERENTIAL STAT 05/05/2025 12:47 PM EST METHADONE SCREEN, URINE STAT 05/05/2025 12:20 PM EST PHENCYCLIDINE, URINE STAT 05/05/2025 12:20 PM EST BUPRENORPHINE SCREEN, URINE STAT 05/05/2025 12:20 PM EST DRUG ABUSE SCREEN 8A PANEL, URINE STAT 05/05/2025 12:20 PM EST XR NECK SOFT TISSUE STAT 03/17/2025 1 :11 PM EDT CULTURE THROAT STAT 03/17/2025 12:41 PM EDT RAPID STREP A SCREEN STAT 03/17/2025 12:41 PM EDT LIPID PANEL WITH REFLEX TO DIRECT LDL Routine 06/07/2024 9:22 AM EST Bipolar disorder, unspecified (CMS/HCC V24, CMS/HCC V28) Cocaine abuse, in remission (CMS/HCC V24, CMS/HCC V28) from Last 3 Months or Most Recently Relevant to Health Maintenance Results * (ABNORMAL) CBC auto differential (05/05/2025 12:47 PM EST) WBC 7.0 4.8 - 10.8 K/mcL LAB HEMETOLOGY METHOD 05/05/2025 1:39 PM EST [facility] RBC 5.30 4.50 - 5.50 M/mcL LAB HEMETOLOGY METHOD 05/05/2025 1:39 PM EST [facility] Hemoglobin 15.2 13.5 - 17.5 g/dL LAB HEMETOLOGY METHOD 05/05/2025 1:39 PM [facility] Hematocrit 44.6 42.0 - 54.0 % LAB HEMETOLOGY METHOD 05/05/2025 1:39 PM [facility] MCV 84.2 79.0 - 98.0 FL LAB HEMETOLOGY METHOD 05/05/2025 1:39 PM [facility] MCH 28.7 27.0 - 32.0 pcg LAB HEMETOLOGY METHOD 05/05/2025 1:39 PM [facility] MCHC 34.1 32.0 - 37.0 g/dL LAB HEMETOLOGY METHOD 05/05/2025 1:39 PM [facility] RDW 11.9 11.0 - 15.0 % LAB HEMETOLOGY METHOD 05/05/2025 1:39 PM [facility] Platelets 278 130 - 400 K/mcL LAB HEMETOLOGY METHOD 05/05/2025 1:39 PM [facility] MPV 9.4 7.0 - 11.0 FL LAB HEMETOLOGY METHOD 05/05/2025 1:39 PM [facility] NRBC 0.0 <1.0 % LAB HEMETOLOGY METHOD 05/05/2025 1:39 PM [facility] NRBC Absolute 0.00 <0.10 K/mcL LAB HEMETOLOGY METHOD 05/05/2025 1:39 PM [facility] Neutrophils Relative 67.6 % LAB HEMETOLOGY METHOD 05/05/2025 1:39 PM [facility] Lymphocytes Relative 24.6 % LAB HEMETOLOGY METHOD 05/05/2025 1:39 PM [facility] Monocytes Relative 5.0 % LAB HEMETOLOGY METHOD 05/05/2025 1:39 PM [facility] Eosinophils Relative 1.4 % LAB HEMETOLOGY METHOD 05/05/2025 1:39 PM EST [facility] Basophils Relative 0.7 % LAB HEMETOLOGY METHOD 05/05/2025 1:39 PM [facility] Immature Granulocytes Relative 0.7 % LAB HEMETOLOGY METHOD 05/05/2025 1:39 PM [facility] Neutrophils Absolute 4.69 1.50 - 7.00 K/mcL LAB HEMETOLOGY METHOD 05/05/2025 1:39 PM [facility] Lymphocytes Absolute 1.71 1.00 - 5.00 K/mcL LAB HEMETOLOGY METHOD 05/05/2025 1:39 PM [facility] Monocytes Absolute 0.35 0.20 - 1.00 K/mcL LAB HEMETOLOGY METHOD 05/05/2025 1:39 PM [facility] Eosinophils Absolute 0.10 0.00 - 0.50 K/mcL LAB HEMETOLOGY METHOD 05/05/2025 1:39 PM [facility] Basophils Absolute 0.05 0.00 - 0.20 K/mcL LAB HEMETOLOGY METHOD 05/05/2025 1:39 PM [facility] Immature Granulocytes Absolute 0.05(H) 0.00 - 0.03 K/mcL LAB HEMETOLOGY METHOD 05/05/2025 1:39 PM [facility] Blood Venous blood specimen / Unknown Venipuncture / Unknown 05/05/2025 12:47 PM EST 05/05/2025 1:17 PM EST us Radha Lares MD LAB BLOOD ORDERABLES Final Resul t [facility] [address] [place] [address], * Ethanol (05/05/2025 12:47 PM EST) Ethanol Level <3 0 - 10 mg/dL LAB CHEMISTRY METHOD 05/05/2025 2:44 PM EST [facility] Blood Venous blood specimen / Unknown Venipuncture / Unknown 05/05/2025 12:47 PM EST 05/05/2025 1:17 PM EST us Radha Lares MD LAB BLOOD ORDERABLES Final Resul t Performing Organization Address [facility]/ZIP Co de Phone Number [facility] [address] [place] [address], [place] [phone] * (ABNORMAL) Acetaminophen level (05/05/2025 12:47 PM EST) Acetaminophen Level <2.0(L) 10.0 - 30.0 mcg/mL LAB CHEMISTRY METHOD 05/05/2025 3:07 PM EST [facility] Blood Venous blood specimen / Unknown Venipuncture / Unknown 05/05/2025 12:47 PM EST 05/05/2025 1:17 PM EST us Radha Lares MD LAB BLOOD ORDERABLES Final Resul t Performing Organization Address [facility] Co de Phone Number [facility] [address] [place] [address], [place] [phone] * (ABNORMAL) Salicylate level (05/05/2025 12:47 PM EST) Salicylate Level <1.7(L) 2.0 - 29.0 mg/dL LAB CHEMISTRY METHOD 05/05/2025 2:44 PM EST [facility] Blood Venous blood specimen / Unknown Venipuncture / Unknown 05/05/2025 12:47 PM EST 05/05/2025 1:17 PM EST us Radha Lares MD LAB BLOOD ORDERABLES Final Resul t Performing Organization Address City/[facility]/ZIP Co de Phone Number [facility] [address] [place] [address], [place] [phone] * (ABNORMAL) Comprehensive metabolic panel (05/05/2025 12:47 PM EST) Sodium 137 133 - 145 mmol/L LAB CHEMISTRY METHOD 05/05/2025 2:47 PM [facility] Potassium 4.5 3.5 - 5.5 mmol/L LAB CHEMISTRY METHOD 05/05/2025 2:47 PM [facility] Chloride 104 96 - 110 mmol/L LAB CHEMISTRY METHOD 05/05/2025 2:47 PM [facility] CO2 28 21 - 32 mmol/L LAB CHEMISTRY METHOD 05/05/2025 2:47 PM [facility] Anion Gap 5 3 - 11 LAB CHEMISTRY METHOD 05/05/2025 2:47 PM [facility] Glucose 93 70 - 100 mg/dL LAB CHEMISTRY METHOD 05/05/2025 2:47 PM [facility] BUN 24 5 - 25 mg/dL LAB CHEMISTRY METHOD 05/05/2025 2:47 PM [facility] Creatinine 1.36(H) 0.70 - 1.30 mg/dL LAB CHEMISTRY METHOD 05/05/2025 2:47 PM [facility] eGFR 65 >=60 mL/min/1. 73m2 LAB CHEMISTRY METHOD 05/05/2025 2:47 PM [facility] Comment:Calculation based on the Chronic Kidney Disease Epidemiology Collaboration (CKD-EPI) equation refit without adjustment for race. BUN/Creatinine Ratio 17.6 LAB CHEMISTRY METHOD 05/05/2025 2:47 PM [facility] Calcium 9.3 8.5 - 10.5 mg/dL LAB CHEMISTRY METHOD 05/05/2025 2:47 PM [facility] AST (SGOT) 21 10 - 42 unit/L LAB CHEMISTRY METHOD 05/05/2025 2:47 PM [facility] ALT (SGPT) 42 10 - 60 unit/L LAB CHEMISTRY METHOD 05/05/2025 2:47 PM EST [facility] Alkaline Phosphatase 67 42 - 121 unit/L LAB CHEMISTRY METHOD 05/05/2025 2:47 PM EST [facility] Total Protein 7.3 6.0 - 8.0 g/dL LAB CHEMISTRY METHOD 05/05/2025 2:47 PM EST [facility] Albumin 4.7 3.2 - 5.0 g/dL LAB CHEMISTRY METHOD 05/05/2025 2:47 PM EST [facility] Total Bilirubin 0.5 0.0 - 1.4 mg/dL LAB CHEMISTRY METHOD 05/05/2025 2:47 PM [facility] Blood Venous blood specimen / Unknown Venipuncture / Unknown 05/05/2025 12:47 PM EST 05/05/2025 1:17 PM EST us Radha Lares MD LAB BLOOD ORDERABLES Final Resul t [facility] [address] [place] [address], * Drug abuse screen 8a panel, urine (05/05/2025 12:20 PM EST) Pathologist [facility] [place] Amphetamine Screen, Ur Negative Negative LAB CHEMISTRY METHOD 05/05/2025 1:15 PM [facility] Comment:Certain OTC medicati ons containing ephedrine, phenylephrine, pseudoephedrine and phenylpropanolamine can cause false positive results. Barbiturate Screen, Ur Negative Negative LAB CHEMISTRY METHOD 05/05/2025 1:15 PM EST [facility] Benzodiazepine Screen, Ur Negative Negative LAB CHEMISTRY METHOD 05/05/2025 1:15 PM [facility] Cocaine Screen, Ur Negative Negative LAB CHEMISTRY METHOD 05/05/2025 1:15 PM EST [facility] Opiate Screen, Ur Negative Negative LAB CHEMISTRY METHOD 05/05/2025 1:15 PM EST [facility] Cannabinoid (THC) Screen, Ur Negative Negative LAB CHEMISTRY METHOD 05/05/2025 1:15 PM EST [facility] Comment:Specimens from patie nts taking pantoprazole sodium (Protonix) have been shown to produce false positive results. Oxycodone Screen, Ur Negative Negative LAB CHEMISTRY METHOD 05/05/2025 1:15 PM EST [facility] Fentanyl, Ur Negative Negative LAB CHEMISTRY METHOD 05/05/2025 1:15 PM EST [facility] Urine Urine specimen obtained by clean catch procedure / Unknown Non-blood Collection / Unknown 05/05/2025 12:20 PM EST 05/05/2025 12:36 PM EST [facility] - 05/05/2025 1:15 PM EST Assay [...] MD LAB URINE ORDERABLES Final Resul t [facility] [address] [place] [address], * Buprenorphine screen, urine (05/05/2025 12:20 PM EST) Buprenorphine Screen Urine Negative Negative LAB CHEMISTRY METHOD 05/05/2025 1:15 PM EST [facility] Urine Urine specimen obtained by clean catch procedure / Unknown Non-blood Collection / Unknown 05/05/2025 12:20 PM EST 05/05/2025 12:36 PM EST [facility] - 05/05/2025 1:15 PM EST Assay cutoff 5 ng/mL Semi-quantitative assay for screening purposes only. Unconfirmed screening result should not be used for non-medical purposes. *ALTERNATE METHOD CONFIRMATION DONE UPON REQUEST ONLY* us Radha Lares MD LAB URINE ORDERABLES Final Resul t Performing Organization Address [facility] de Phone Number [facility] [address] [place] [address], [place] [phone] * Methadone, urine (05/05/2025 12:20 PM EST) Methadone Screen, Urine Negative Negative LAB CHEMISTRY METHOD 05/05/2025 1:15 PM EST [facility] Comment: Assay cutoff 300 ng/mL [...] ORDERABLES Final Resul t Performing Organization Address [facility] de Phone Number [facility] [address] [place] [address], [place] [phone] * Phencyclidine, urine (05/05/2025 12:20 PM EST) PCP Scrn, Ur Negative Negative LAB CHEMISTRY METHOD 05/05/2025 1:15 PM EST [facility] Comment: Assay cutoff 25 ng/mL [...] ORDERABLES Final Resul t Performing Organization Address [facility] de Phone Number [facility] [address] [place] [address], * XR Neck Soft Tissue (03/17/2025 1:11 PM EDT) Anatomical Region Laterality Modality Head and Neck Radiographic Ashley ging 03/17/2025 1:20 PM EDT Impressions 03/17/2025 1:21 PM EDT Impression: Patent airway. Normal epiglottis. Telerad ROBY ([id number]) -------- FINAL REPORT -------- Dictated By: Nelly Santillan Dictated Date: 03/17/2025 13:20 ET Assigned Physician: Nelly Santillan Reviewed and Electronically Signed By: Nelly Santillan Signed Date: 03/17/2025 13:21 ET Workstation ID: [id number] Transcribed By: Self Edit Transcribed Date: 03/17/2025 13:20 ET Narrative 03/17/2025 1:21 PM EDT History: Sore throat. Findings: AP and lateral views of the neck are obtained with soft tissue technique. The airway is widely patent. The epiglottis is normal in thickness. The prevertebral soft tissues are unremarkable. The cervical spine demonstrates normal alignment. Disc degenerative changes are noted at C5-C6. Procedure Note Nelly Santillan MD - 03/17/2025 History: Sore throat. Findings: AP and lateral views of the neck are obtained with soft tissuetechnique. The airway is widely patent. The epiglottis is normal in thickness. Theprevertebral soft tissues are unremarkable. The cervical spine demonstrates normal alignment. Disc degenerativechanges are noted at C5-C6. IMPRESSION: Impression: Patent airway. [place]iglott[place] ([id number]) -------- FINAL REPORT -------- Dictated By: Nelly Santillan Dictated Date: 03/17/2025 13:20 ET Assigned Physician: Nelly Santillan Reviewed and Electronically Signed By: Nelly Santillan Signed Date: 03/17/2025 13:21 ET Workstation ID: [id number] Transcribed By: Self Edit Transcribed Date: 03/17/2025 13:20 ET us Mike Hernandez MD IMG XR PROCEDURES Final Res ult * Rapid strep A screen (03/17/2025 12:41 PM EDT) Strep A Ag Negative Negative, Invalid 03/17/2025 1:13 PM EDT [facility] Comment:Refer to Throat Cult ure. Swab Structure of anterior region of neck / Unknown Non-blood Collection / Unknown 03/17/2025 12:41 PM EDT 03/17/2025 12:49 PM EDT Mike Hernandez MD LAB MICROBIOLOGY - GENERAL ORDERABLES Final Result Performing Organization Address [facility]/ZIP Co de Phone Number [facility] [address] [place] [address], [place] [phone] * Culture throat (03/17/2025 12:41 PM EDT) [facility] Culture, Throat No pathogens isolated. 03/19/2025 12:48 PM EDT [facility] Swab Structure of anterior region of neck / Unknown Non-blood Collection / Unknown 03/17/2025 12:41 PM EDT 03/17/2025 12:49 PM EDT Mike Hernandez MD LAB MICROBIOLOGY - GENERAL ORDERABLES Final Result Performing Organization Address City/[facility]/ZIP Co de Phone Number [facility] [address] [place] [address], [place] [phone] * (ABNORMAL) Lipid panel with reflex to direct LDL (06/07/2024 9:22 AM EST) [facility] Cholesterol 208(H) 0 - 200 mg/dL LAB CHEMISTRY METHOD 06/07/2024 10:17 AM EST [facility] Triglycerides 111 0 - 150 mg/dL LAB CHEMISTRY METHOD 06/07/2024 10:17 AM EST [facility] HDL 41 >=40 mg/dL LAB CHEMISTRY METHOD 06/07/2024 10:17 AM [facility] LDL Calculated 145(H) 0 - 100 mg/dL LAB CHEMISTRY METHOD 06/07/2024 10:17 AM [facility] VLDL Cholesterol Christiano 22.2 mg/dL LAB CHEMISTRY METHOD 06/07/2024 10:17 AM [facility] Non HDL Chol. (LDL+VLDL) 167(H) <145 mg/dL LAB CHEMISTRY METHOD 06/07/2024 10:17 AM [facility] Chol/HDL Ratio 5.1(H) 0.0 - 4.4 LAB CHEMISTRY METHOD 06/07/2024 10:17 AM [facility] Blood Venous blood specimen / Unknown Venipuncture / Unknown 06/07/2024 9:22 AM EST 06/07/2024 9:47 AM EST us Shai Ahmadi ARMORING MACHINE OPERATOR LAB BLOOD ORDERABLES F inal Result [facility] [address] [place] [address], [place] [phone] from Last 3 Months or Most Recently Relevant to Health Maintenance Insurance MEDICAID - [place] Care Teams Hazardous Substances Scientist Relationship Specialty Start Date End Date Physician, Pcp Unknown PCP - General 05/05/25
--- OUTSIDE RECORDS SUMMARY | 2025-05-06 18:09 | XMS_ITS | Clinical Summary ---
Author Organization [facility] Address [address] [place] [address] Care Team Providers Care Wheat Buyer Name Role Phone Mike Boss MD Primary Care Provider [phone] Source Comments PLEASE NOTE, if this patient is a minor, it may be UNLAWFUL to discuss sensitive information that is contained in these records (such as FAMILY PLANNING, MENTAL HEALTH or SUBSTANCE ABUSE) with the minor patient's parent or other person without the patient's specific authorization.[facility] Allergies Active Allergy Reactions Criticality Noted Date Comments Penicillins Swelling 10/25/2023 Swelling in throat Medications buPROPion HCL (WELLBUTRIN XL) 300 mg 24 hr tablet TAKE 1 TABLET BY MOUTH ONCE DAILY WITH 150mg TABLET FOR 450mg DAILY 30 Tablet 1 4 Active lamoTRIgine (LAMICTAL) 200 mg tablet Take 1 tablet by mouth at bedtime 30 Tablet 1 4 Active buPROPion XL (WELLBUTRIN XL) 150 mg 24 hr tablet TAKE 1 TABLET BY MOUTH ONCE DAILY WITH 300mg TABLET FOR 450mg DAILY 30 Tablet 1 4 Active QUEtiapine (SEROQUEL) 25 mg tablet Take 25 mg by mouth 3 (three) times daily as needed 5 Active hydrOXYzine pamoate (VISTARIL) 25 mg capsule TAKE 1 CAPSULE BY MOUTH two (2) times a day NEEDED FOR ANXIETY OR FOR SLEEP 5 Active pantoprazole (PROTONIX) 40 mg EC tablet TAKE 1 TABLET BY MOUTH two (2) times a day 60 Tablet 1 5 Active naproxen (NAPROSYN) 500 mg tablet TAKE 1 TABLET BY MOUTH two (2) times a day 60 Tablet 5 5 Active cyclobenzaprine (FLEXERIL) 5 mg tablet TAKE 1 TABLET BY MOUTH 3 (THREE) TIMES A DAY NEEDED FOR MUSCLE SPASM 60 Tablet 5 Active lisinopriL 40 mg tablet TAKE 1 TABLET BY MOUTH ONCE DAILY 30 Tablet 5 Active nicotine, polacrilex, (NICORETTE) 4 mg gumIndications: Nicotine dependence, uncomplicated, unspecified nicotine product type chew AND park 1 PIECE OF gum along cheeks EVERY 2 HOURS 100 Each 5 Active nicotine, polacrilex, (NICORETTE) 4 mg gumIndications: Nicotine dependence, uncomplicated, unspecified nicotine product type chew AND park 1 PIECE OF gum along cheeks EVERY 2 HOURS 100 Each 3 5 025 Discontinued cyclobenzaprine (FLEXERIL) 5 mg tablet TAKE 1 TABLET BY MOUTH 3 (THREE) TIMES A DAY NEEDED FOR MUSCLE SPASM 60 Tablet 5 025 Discontinued lisinopriL 40 mg tablet TAKE 1 TABLET BY MOUTH ONCE DAILY 30 Tablet 5 025 Discontinued Active Problems Problem Noted Date Diagnosed Date Essential hypertension 01/17/2024 Lives in shared accommodation due to homelessnes s 10/25/2023 Severe episode of recurrent major depressive disorder, without psychotic features 10/25/2023 Bipolar 1 disorder, mixed 10/25/2023 Opioid use disorder 10/25/2023 Chronic left-sided low back pain with left-sided sciatica 10/25/2023 Chronic neck pain 10/25/2023 Nicotine dependence 10/25/2023 Class 1 obesity due to exces s calories with serious comorbidity and body mass index (BMI) of 31.0 to 31.9 in adult 10/25/2023 Resolved Problems Problem Noted Date Diagnosed Date Resolved Date Polysubstance dependence 12/11/202405/2025 Overview (12/11/2024): In remission since 2023 Genital warts 09/25/2024 09/25/2024 Overview (09/25/2024): Resolved s/p cryotherapy Social History Tobacco Use Types Packs/Day Years Used Date Smoking Tobacco: Former Cigarettes 0.5 26.6 S tarted: 10/02/1998 Tobacco Cessation:Counseling Given: Not Answered Alcohol Use Standard Drinks/Week Comments Not Currently 0 (1 standard drink = 0.6 oz pur e alcohol) Social Connections Answer Date Recorded Connectedness 0 03/19/2024 Financial Resource Strain Answer Date R ecorded Financial Resource Strain 0 2023 Stress Answer Date Recorded Stress 0 2023 Physical Activity Answer Date Recorded Physical Activity 0 2023 Food Insecurity Answer Date Recorded Food 0 03/28/2024 Transportation Needs Answer Date Record ed Transportation 0 2023 Housing Stability Answer Date Recorded Housing 0 2023 Safety and Environment Answer Date Suhail rded Safety 0 2023 Utilities Answer Date Recorded Utilities 0 2023 Employment Answer Date Recorded Stress 0 03/19/2024 Sex and Gender Information Value Date Recorded Sex Assigned at Male 10/25/2023 6:23 AM PDT Legal Sex Male 7:48 AM PDT Gender Identity Male 10/25/2023 5:51 AM PDT Sexual Orientation Straight 10/25/2023 5: 51 AM PDT Last Filed Vital Signs Vital Sign Reading Time Taken Comments Blood Pressure 132/87 12/11/2024 8:53 AM EDT Pulse 89 12/11/2024 8:53 AM EDT Temperature 36.6 C (97.8 F) 12/11/2024 8:53 AM EDT Respiratory Rate 16 08/28/2024 9:06 AM EST Oxygen Saturation - - Inhaled Oxygen Concentration - - Weight 102.9 kg (226 lb 14.4 oz) 12/11/2024 8:53 AM EDT Height 177.8 cm (5' 10 ) 12/11/2024 8:53 AM EDT Body Mass Index 32.56 12/11/2024 8:53 AM EDT Plan of Treatment Health Maintenance Due Date Last Done Comments Anxiety Screening 1978 Imm-DTaP/Tdap/Td (1 - Tdap) 1997 Imm-Hepatitis B (1 of 3 - 19 + 3-dose series) 1997 CT Colonography 10/17/2023 Colonoscopy 10/17/2023 Colorectal Cancer Screening 10/17/2023 FIT/gFOBT 10/17/2023 Fecal DNA 10/17/2023 Flexible Sigmoidoscopy 10/17/2023 Annual Wellness (Adult): Ind icated (All Coverage) 10/24/2024 10/25/2023 [id number] ( season) 2025 Imm-Influenza (#1) 2025 Depression Monitoring 03/13/2025 12/11/2024 , 02/21/2024, 10/25/2023 Diabetes Screening 06/07/2025 06/07/2024, 1 08/08/2023, 06/07/2024, Additional history exists Lipid Screening 06/07/2025 06/07/2024, 10/31/2023 Tobacco Cessation Counseling (#1) 05/06/2026 12/11/2024, 09/25/2024, 08/28/2024, Additional history exists Tobacco Screening 05/06/2026 05/06/2025, , 09/25/2024, Additional history exists HIV Screening Completed 10/31/2023 Hepatitis C Screening Completed 10/31/2023 Alcohol and Drug Screen Completed 12/11/2024, 10/24 Procedures Procedure Name Priority Date/Time Associated Diagnosis Comments HIV 1/2 AG & AB W/RFLX (4TH GEN) Routine 10/31/2023 8:48 AM EDT Exposure to potential infection HEPATITIS C AB W/RFLX HCV RNA, QT, RT PCR Routine 10/31/2023 8:48 AM EDT Exposure to potential infection COMPREHENSIVE METABOLIC PANEL Routine 10/31/2023 8:48 AM EDT Routine general medical examination at a health care facility LIPIDS W RFLX TO DIRECT LDL Routine 10/31/2023 8:48 AM EDT Routine general medical examination at a health care facility from Last 3 Months or Most Recently Relevant to Health Maintenance Results * HEPATITIS C AB W/RFLX HCV RNA, QT, RT PCR (10/31/2023 8:48 AM EDT) HEPATITIS C ANTIBODY NON-REACT ROHAN NON-REACT ROHAN [facility] Comment: HCV antibody was non-reactive. There is no laboratory evidence of HCV infection. In most cases, no further action is required. However, if recent HCV exposure is suspected, a test for HCV RNA (test code 24733) is suggested. For additional information please refer to http://[employer]/faq/OGJ79q3 (This link is being provided for informational/ educational purposes only.) Blood Blood / Unknown 10/31/2023 8 :48 AM EDT 10/31/2023 8:48 AM EDT Narrative [facility] [employer] - 11/01/2023 8:16 AM EDT FASTING:YES COLLECTION KIT GIVEN TO PATIENT. PATIENT ADVISED TO RETURN. us Mike Boss MD LAB - BLOOD DRAW Final Resul t [facility] [address] [place] [id number], [facility] [address] [place] [id number] * HIV 1/2 AG & AB W/RFLX (4TH GEN) (10/31/2023 8:48 AM EDT) HIV AG/AB, 4TH GEN NON-REAC TIVE NON-REAC TIVE [facility] Comment: HIV-1 antigen and HIV-1/HIV-2 antibodies were not detected. There is no laboratory evidence of HIV infection. PLEASE NOTE: This information has been disclosed to you from records whose confidentiality may be protected by state law. If your state requires such protection, then the state law prohibits you from making any further disclosure of the information without the specific written consent of the person to whom it pertains, or as otherwise permitted by law. A general authorization for the release of medical or other information is NOT sufficient for this purpose. For additional information please refer to http://[employer]/faq/UMB520 (This link is being provided for informational/ educational purposes only.) The performance of this assay has not been clinically validated in patients less than 2 years old. Blood Blood / Unknown 10/31/2023 8 :48 AM EDT 10/31/2023 8:48 AM EDT Narrative [facility] - 11/01/2023 8:16 AM EDT FASTING:YES COLLECTION KIT GIVEN TO PATIENT. PATIENT ADVISED TO RETURN. Mike Boss MD LAB - BLOOD DRAW Final Resul t [facility] [address] [address], [facility] [address] [place] [address] * (ABNORMAL) LIPIDS W RFLX TO DIRECT LDL (10/31/2023 8:48 AM EDT) CHOLESTEROL, TOTAL 211(H) <200 mg/dL [facility] HDL CHOLESTEROL 45 > OR = 40 mg/dL [facility] TRIGLYCERIDES 237(H) <150 mg/dL [facility] Comment: If a non-fasting specimen was collected, consider repeat triglyceride testing on a fasting specimen if clinically indicated. Muna et al. J. of Clin. Lipidol. 2015;9:129-169. LDL-CHOLESTEROL 128(H) 99 mg/dL (calc) [facility] Comment: Reference range: <100 Desirable range <100 mg/dL for primary prevention; <70 mg/dL for patients with CHD or diabetic patients with > or = 2 CHD risk factors. LDL-C is now calculated using the Chandu-Aranza calculation, which is a validated novel method providing better accuracy than the Friedewald equation in the estimation of LDL-C. Chandu SS et al. RICK. 2013;310(19): 1687-2826 (http://education.[employer]/faq/QKA969) CHOL/HDLC RATIO 4.7 <5.0 (calc) [facility] NON-HDL CHOLESTEROL 166(H) <130 mg/dL (calc) [facility] Comment: For patients with diabetes plus 1 major ASCVD risk factor, treating to a non-HDL-C goal of <100 mg/dL (LDL-C of <70 mg/dL) is considered a therapeutic option. Blood Blood / Unknown 10/31/2023 8 :48 AM EDT 10/31/2023 8:48 AM EDT Narrative [facility] - 11/01/2023 8:16 AM EDT FASTING:YES COLLECTION KIT GIVEN TO PATIENT. PATIENT ADVISED TO RETURN. Mike Boss MD LAB - BLOOD DRAW Final Resul t [facility] [address] [address], [facility] [address] [place] [address] * (ABNORMAL) COMPREHENSIVE METABOLIC PANEL (10/31/2023 8:48 AM EDT) GLUCOSE 110(H) 65 - 99 mg/dL [facility] Comment: Fasting reference interval For someone without known diabetes, a glucose value between 100 and 125 mg/dL is consistent with prediabetes and should be confirmed with a follow-up test. UREA NITROGEN (BUN) 13 7 - 25 mg/dL [facility] CREATININE (blood) 1.10 0.60 - 1.29 mg/dL [facility] EGFR 84 > OR = 60 mL/min/1. 73m2 [facility] BUN/CREATININE RATIO SEE NOTE: [facility] Comment: Not Reported: BUN and Creatinine are within reference range. SODIUM 138 135 - 146 mmol/L [facility] POTASSIUM 4.3 3.5 - 5.3 mmol/L [facility] CHLORIDE 102 98 - 110 mmol/L [facility] CARBON DIOXIDE 28 20 - 32 mmol/L [facility] CALCIUM 9.6 8.6 - 10.3 mg/dL [facility] PROTEIN, TOTAL 7.2 6.1 - 8.1 g/dL [facility] ALBUMIN 4.7 3.6 - 5.1 g/dL [facility] GLOBULIN 2.5 1.9 - 3.7 g/dL (calc) [facility] ALBUMIN/GLOBULI N RATIO 1.9 1.0 - 2.5 (calc) [facility] BILIRUBIN, TOTAL 0.5 0.2 - 1.2 mg/dL [facility] ALKALINE PHOSPHATASE 62 36 - 130 U/L [facility] AST 36 10 - 40 U/L [facility] ALT 59(H) 9 - 46 U/L [facility] Blood Blood / Unknown 10/31/2023 8 :48 AM EDT 10/31/2023 8:48 AM EDT Narrative [facility] [employer] - 11/01/2023 8:16 AM EDT FASTING:YES COLLECTION KIT GIVEN TO PATIENT. PATIENT ADVISED TO RETURN. us Mike Boss MD LAB - BLOOD DRAW Edited Resu lt - Final [facility] [employer] [address] [address], [place] [facility] [address] [place] [address] from Last 3 Months or Most Recently Relevant to Health Maintenance Insurance [id number] [facility] [employer] Care Teams Wheat Buyer Relationship Specialty Start Date End Date Mike Boss MD [address] [place] [address] PCP - General Internal Medicine 10/16/23
--- OUTSIDE RECORDS SUMMARY | 2025-05-06 18:09 | XMS_ITS | Clinical Summary ---
Author Organization [facility] [employer] Address [address] [place] [address] [address] [place] [address] Care Team Providers Care Shuttle Threader Name Role Phone Unavailable Primary Care Provider Unavailabl e Social History Tobacco Use Types Packs/Day Years Used Date Smoking Tobacco: Never Assessed Sex and Gender Information Value Date Recorded Sex Assigned at Not on file Legal Sex Male 9:30 PM EDT Gender Identity Not on file Sexual Orientation Not on file Plan of Treatment Health Maintenance Due Date Last Done Comments CT Colonography 1978 Colonoscopy 1978 Colorectal Cancer Screening 1978 Depression Screening 1978 FIT DNA/Cologuard 1978 FIT 1978 FOBT 1978 Lipid Panel 1978 SDOH Screening 1978 Sigmoidoscopy 1978 Disability Screening 1978 Alcohol/Substance Use Screening 1990 Tobacco Screening 1990 Family Planning (PISQ) 1993 Hepatitis C Screening 1996 DTaP/Tdap/Td Vaccines (1 - Tdap) 1997 Hepatitis B Vaccines (1 of 3 - 19+ 3-dose series) 1997 COVID-19 Vaccine ( - 2023-2 5 season) 2025 Influenza Vaccine (#1) 2025 Zoster Vaccines (1 of 2) 2028 RSV Patients and Pa tients Aged 60 years or older (1 - 1-dose 75+ series) 2053 HIV Screening Completed 10/31/2023 HIB Vaccines Aged Out No longer eligi ble based on patient's age to complete this topic HPV Vaccines Aged Out No longer eligi ble based on patient's age to complete this topic Hepatitis A Vaccines Aged Out No long er eligible based on patient's age to complete this topic IPV Vaccines Aged Out No longer eligi ble based on patient's age to complete this topic Meningococcal B Vaccine Aged Out No l onger eligible based on patient's age to complete this topic Meningococcal Vaccine Aged Out No edilberto darrell eligible based on patient's age to complete this topic Pneumococcal Vaccine: Pediat rics (0 to 5 Years) and At-Risk Patients (6 to 49) Years Aged Out No longer eligi ble based on patient's age to complete this topic RSV under 20 months Aged Out No longe r eligible based on patient's age to complete this topic Rotavirus Vaccines Aged Out No longer eligible based on patient's age to complete this topic
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
[2025-05-06 20:00] VITALS: BP 107/55; PULSE 100; RESP 16; TEMP 37.7; O2SAT 96
[2025-05-07 07:53] LABS: MANUAL DIFF FLAG NO
[2025-05-07 07:56] LABS: Hematocrit 45.3 % (42.0-52.0); Hemoglobin 15.5 g/dl (14.0-18.0); Imm Gran Abs Auto 0.04 X10*3/uL (0.00-0.03); Imm Gran Pct Auto 0.5 % (0.0-0.4); Lymphocytes Absolute Auto 1.8 X10*3/uL (1.2-4.9); Mean Corpuscular HGB Conc 34.2 g/dl (31.0-36.0); Mean Corpuscular Hemoglobin 28.9 pg (27.0-33.0); Mean Corpuscular Volume 84.4 fL (80.0-98.0); NRBC Abs Auto 0.000 X10*3/uL (0.0-0.012); NRBC Pct Auto 0.0 /100WBC (0.0-0.2); Platelet Count 271 X10*3/uL (160-400); Red Blood Count 5.37 X10*6/uL (4.60-5.80); White Blood Count 7.3 X10*3/uL (4.8-10.8)
--- NOTE | 2025-05-07 08:30 | HO.PM.IMCN ---
History of Present Illness Data of Consult Service Date: 05/07/25 Primary Care Provider: [facility] HPI Reason for consult: Medical consult 44-year-old male with a past medical history of bipolar disorder, depression and hypertension presented to [facility] with increased depression and thoughts of suicide. His tox screen was negative, electrolytes within normal limits no acute abnormalities. Negative ethanol level. No leukocytosis or anemia. On exam he denies any medical concerns. He is worried that he is going to lose his bed. Social work to follow up with patient. His physical exam is benign. Review of Systems Review of Systems: Denies any shortness of breath, chest pain, headaches, dysuria, abdominal pain or discomfort, nausea, vomiting or diarrhea. Denies fever or chills. PMFSH Social History Household Members: Other Housing: Other Housing [facility] Do you presently have visiting nurse or other home services: No Patient Tobacco Use Status: Former Tobacco user Currently Displaying Signs/Symptoms of Drug Intoxication Withdrawal: No Have you been hit, kicked, punched, or otherwise hurt by someone within the past year? If so, by whom?: No Do you feel safe in your current relationship?: Yes Is there a partner from a previous relationship who is making you feel unsafe now?: No Are you made to feel afraid or neglected: No Advance Directives: No Advance Directives Information Provided: No Do you have thoughts of harming others: None Do you have a plan to hurt others: No Plan Recently lost weight without trying: Yes How much weight loss: 2-13 pounds Eating poorly because of decreased appetite: Yes Nutrition screen score: 4 Nutrition Risks: Anorexia Poor oral hygiene: No Meds Allergies Allergy/AdvReac Type Severity Reaction Status Date / Time Penicillins Allergy Anaphylaxis Verified 05/06/25 16:24 Active Medications: Current Medications Acetaminophen (Acetaminophen 325 Mg Tablet) 650 mg PO Q6H PRN PRN Reason: Headache/Pain, Scale 1-10 Al Hydroxide/Mg Hydroxide (Magnesium Hydrox/Alum Hydrox 30 Ml Oral.Susp) 30 ml PO Q6H PRN PRN Reason: Heartburn/Nausea Bupropion HCl (Bupropion Hcl Xl 300 Mg Tab.Er.24h) 300 mg PO DAILY [facility] Bupropion HCl (Bupropion Hcl Xl 150 Mg Tab.Er.24h) 150 mg PO DAILY [facility] Cyclobenzaprine HCl (Cyclobenzaprine Hcl 5 Mg Tablet) 5 mg PO TID PRN PRN Reason: Muscle Spasm Hydroxyzine HCl (Hydroxyzine Hcl 25 Mg Tablet) 25 mg PO Q6H PRN PRN Reason: mild anxiety Lamotrigine (Lamotrigine 100 Mg Tablet) 200 mg PO DAILY [facility] Lisinopril (Lisinopril 40 Mg Tablet) 40 mg PO DAILY [facility]; Protocol Magnesium Hydroxide (Milk Of Magnesia 30 Ml Oral.Susp) 30 ml PO DAILY PRN PRN Reason: Constipation Naproxen (Naproxen 500 Mg Tablet) 500 mg PO BID [facility] Last Admin: 05/06/25 21:14 Dose: 500 mg Nicotine Polacrilex (Nicotine Polacrilex 2 Mg Gum) 2 mg BUCCAL Q2H PRN PRN Reason: Nicotine Cravings Omeprazole (Omeprazole 20 Mg Capsule.Dr) 20 mg PO DAILY@0630 [facility] Last Admin: 05/07/25 06:16 Dose: 20 mg Quetiapine Fumarate (Quetiapine Fumarate 25 Mg Tablet) 25 mg PO TID PRN PRN Reason: anxiety or Insomnia Quetiapine Fumarate (Quetiapine Fumarate 25 Mg Tablet) 75 mg PO BID PRN PRN Reason: agitation Trazodone HCl (Trazodone Hcl 50 Mg Tablet) 50 mg PO BEDTIME MRX1 PRN PRN Reason: Insomnia Home Medications ?Medication ?Instructions ?Recorded ?Confirmed ?Last Taken ?Type bupropion HCl 150 mg 24 hr tablet, 150 mg PO DAILY 05/06/25 05/06/25 05/06/25 09:00 History extended release bupropion HCl 300 mg 24 hr tablet, 300 mg PO DAILY 05/06/25 05/06/25 05/06/25 History extended release cyclobenzaprine 5 mg tablet 5 mg PO TID PRN muscle spasm 05/06/25 05/06/25 05/05/25 History hydroxyzine pamoate 25 mg capsule 25 mg PO BID PRN anxiety 05/06/25 05/06/25 05/05/25 History lamotrigine 200 mg tablet 200 mg PO DAILY 05/06/25 05/06/25 05/06/25 09:00 History lisinopril 40 mg tablet 40 mg PO DAILY 05/06/25 05/06/25 05/06/25 09:00 History naproxen 500 mg tablet 500 mg PO BID 05/06/25 05/06/25 05/05/25 History quetiapine 25 mg tablet 25 mg PO TID PRN anxiety or 05/06/25 05/06/25 05/05/25 History Insomnia Physical Exam Vital Signs and Narrative: Vital Signs: Last Vital Signs Temp 100 F 05/06/25 20:00 Pulse 100 05/06/25 20:00 Resp 16 05/06/25 20:00 BP 107/55 L 05/06/25 20:00 Pulse Ox 96 05/06/25 20:00 O2 Del Method Room Air 05/06/25 20:00 BMI result Body Mass Index 29.1 Alert and oriented X3, able to give good history. Neuro: CN II-X11 intact, no deficits, visual acuity intact EYES: PERRLA, EOM intact ENT: Hearing intact, MMM Cardiac: S1 S2 RRR, No ectopy Pulmonary: Lungs clear to auscultation, No increased WOB. Abdominal: BS active in all 4 quadrants, no guarding or tenderness MSK: Strength 5/5 upper and lower extremities : Deferred Extremities: No edema in lower extremities Psych: Mood stable, Quiet and cooperative. Skin: Warm and dry, Intact Results Labs 05/07/25 07:40 05/07/25 07:40 Labs: Laboratory Results - last 24 hr 05/07/25 07:40 MCV 84.4 MCH 28.9 MCHC 34.2 RDW 11.9 Plt Count 271 MPV 8.9 L Immature Gran % (Auto) 0.5 H Neut % (Auto) 65.7 Lymph % (Auto) 23.9 [place] % (Auto) 5.7 Eos % (Auto) 3.4 Baso % (Auto) 0.8 Lymph # (Auto) 1.8 [place] # (Auto) 0.4 Eos # (Auto) 0.3 Baso # (Auto) 0.1 Abs Immat Gran (auto) 0.04 H Absolute Neuts (auto) 4.8 Absolute Nucleated RBC 0.000 Nucleated RBC % (auto) 0.0 Assessment and Plan (1) HTN (hypertension): Status: Acute Plan 44-year-old male past medical history listed below presented to [facility] with increased depression and suicidal ideation. Now admitted to inpatient psych for further stabilization. Bipolar disorder/depression/suicide ideation Treatment per psychiatry team Hypertension Blood pressure well controlled on lisinopril. Patient with a slight increase in creatinine. Repeat labs on Monday Decrease lisinopril to 20 mg daily Follow blood pressures and adjust as needed Thank you for allowing me to participate in the care of this patient. Will follow with you, please notify medical provider with any changes in condition or concerns.
[2025-05-07 08:40] LABS: Hemoglobin A1C 144.5248 umol/L; Total Hemoglobin (HGBA1C) 3975.6398 umol/L
[2025-05-07 08:45] LABS: Alanine Aminotransferase 38 U/L (0-40); Albumin Level 4.9 g/dL (3.5-5.0); Alkaline Phosphatase 65 U/L (39-117); Anion Gap 12 (12-20); Aspartate Amino Transferase 28 U/L (5-37); Blood Urea Nitrogen 34 mg/dL (9-16); Calcium 9.5 mg/dL (8.4-10.2); Carbon Dioxide 28 mmol/L (22-29); Chloride 106 mmol/L (96-108); Cholesterol 201 mg/dL (<200); Creatinine Clr Calc Pharmacy 72.5; Estimated Glomerular Filt Rate 52; HDL Cholesterol 38 mg/dL (>40); Potassium 4.7 mmol/L (3.3-5.1); Sodium 141 mmol/L (135-145); Total Protein 7.4 g/dL (6.5-8.0); Triglycerides 114 mg/dL (<150)
[2025-05-07 09:12] VITALS: BP 109/74; PULSE 98; RESP 16; TEMP 36.9; O2SAT 98
[2025-05-07] MEDS: buPROPion HCl XL 300 MG TAB.ER.24H PO (09:14)
[2025-05-07] MEDS: buPROPion HCl XL 150 MG TAB.ER.24H PO (09:14)
--- NOTE | 2025-05-07 18:36 | ECG_ITS ---
Test Reason : CHECK QT Blood Pressure : */* mmHG Vent. Rate : 89 BPM Atrial Rate : 89 BPM P-R Int : 158 ms QRS Dur : 90 ms QT Int : 344 ms P-R-T Axes : 71 60 53 degrees QTcB Int : 418 ms Normal sinus rhythm Low voltage QRS Septal infarct , age undetermined Abnormal ECG No previous ECGs available Referred By: Nimo Bush Electronically Signed By: Jimmy Keene
--- NOTE | 2025-05-07 20:30 | P.PNPSI_ITS ---
Subjective Subjective Date of Service: 05/07/25 Reason For Visit: depression, si Subjective Notes: Conditional Voluntary Interim History: Chart reviewed, case discussed w/ tx team Met w/ pt along w/ [employer] student. Pt reports that he's feeling better today. Hadn't been hospitalized x 1 yr. He's been at the [facility] x 1.5 yrs and worried about being discharged from the program due to coming to the hospital, as he was told that his psychiatric needs may be too acute when he was previously hospitalized 3 x at [facility]. He felt much better when SW informed him that the [facility] will accept him back. Reports improved sleep and appetite Endorses pdw prior to admission but denies current SI He would like to continue his current med regimen for now. Medication Compliance: Yes Mental Status Exam Mental Status Exam Narrative: Appearance: Casually dressed. Grooming/hygiene wnl. Good eye contact Attitude:Cooperative Speech: Fluent and wnl in regard to volume, tone, prosody Motor activity: Calm and without any tics, tremors or dyskinesias. Steady gait Mood: as noted above Affect: appropriate, reactive, generally bright Thought process: goal directed and without evidence of formal thought disorder Thought content: as noted above. Perception: Denies AH/VH and does not appear to respond to internal stimuli Alert/oriented in all spheres Cognition grossly intact Insight: intact Judgment: intact Diagnostics Vital Signs (24Hr): Vital Signs - 24 hr 05/07/25 09:12 Temperature 98.5 F Pulse Rate 98 Respiratory Rate 16 Blood Pressure 109/74 Pulse Oximetry 98 Oxygen Delivery Method Room Air BMI result Body Mass Index 29.1 Labs 05/07/25 07:40 05/07/25 07:40 Labs: Laboratory Results - last 48 hr 05/07/25 07:40 WBC 7.3 RBC 5.37 Hgb 15.5 Hct 45.3 MCV 84.4 MCH 28.9 MCHC 34.2 RDW 11.9 Plt Count 271 MPV 8.9 L Immature Gran % (Auto) 0.5 H Neut % (Auto) 65.7 Lymph % (Auto) 23.9 [place] % (Auto) 5.7 Eos % (Auto) 3.4 Baso % (Auto) 0.8 Lymph # (Auto) 1.8 [place] # (Auto) 0.4 Eos # (Auto) 0.3 Baso # (Auto) 0.1 Abs Immat Gran (auto) 0.04 H Absolute Neuts (auto) 4.8 Absolute Nucleated RBC 0.000 Nucleated RBC % (auto) 0.0 Sodium 141 Potassium 4.7 Chloride 106 Carbon Dioxide 28 Anion Gap 12 BUN 34 H Creatinine 1.45 H Estim Creat Clear Calc 72.5 Estimated GFR 52 Random Glucose 105 Estimat Average Glucose 111 Hemoglobin A1c % 5.5 Calcium 9.5 Total Bilirubin 0.4 AST 28 ALT 38 Alkaline Phosphatase 65 Total Protein 7.4 Albumin 4.9 Triglycerides 114 Cholesterol 201 H LDL Cholesterol, Calc 141 H HDL Cholesterol 38 L Medications Medications Current Medications Acetaminophen (Acetaminophen 325 Mg Tablet) 650 mg PO Q6H PRN PRN Reason: Headache/Pain, Scale 1-10 Al Hydroxide/Mg Hydroxide (Magnesium Hydrox/Alum Hydrox 30 Ml Oral.Susp) 30 ml PO Q6H PRN PRN Reason: Heartburn/Nausea Bupropion HCl (Bupropion Hcl Xl 300 Mg Tab.Er.24h) 300 mg PO DAILY [facility] Last Admin: 05/07/25 09:14 Dose: 300 mg Bupropion HCl (Bupropion Hcl Xl 150 Mg Tab.Er.24h) 150 mg PO DAILY [facility] Last Admin: 05/07/25 09:14 Dose: 150 mg Cyclobenzaprine HCl (Cyclobenzaprine Hcl 5 Mg Tablet) 5 mg PO TID PRN PRN Reason: Muscle Spasm Last Admin: 05/07/25 20:13 Dose: 5 mg Hydroxyzine HCl (Hydroxyzine Hcl 25 Mg Tablet) 25 mg PO Q6H PRN PRN Reason: mild anxiety Last Admin: 05/07/25 20:12 Dose: 25 mg Lamotrigine (Lamotrigine 100 Mg Tablet) 200 mg PO DAILY [facility] Last Admin: 05/07/25 09:15 Dose: 200 mg Lisinopril (Lisinopril 20 Mg Tablet) 20 mg PO DAILY [facility]; Protocol Magnesium Hydroxide (Milk Of Magnesia 30 Ml Oral.Susp) 30 ml PO DAILY PRN PRN Reason: Constipation Naproxen (Naproxen 500 Mg Tablet) 500 mg PO BID [facility] Last Admin: 05/07/25 20:12 Dose: 500 mg Nicotine Polacrilex (Nicotine Polacrilex 2 Mg Gum) 2 mg BUCCAL Q2H PRN PRN Reason: Nicotine Cravings Omeprazole (Omeprazole 20 Mg Capsule.Dr) 20 mg PO DAILY@0630 [facility] Last Admin: 05/07/25 06:16 Dose: 20 mg Quetiapine Fumarate (Quetiapine Fumarate 25 Mg Tablet) 25 mg PO TID PRN PRN Reason: anxiety or Insomnia Quetiapine Fumarate (Quetiapine Fumarate 25 Mg Tablet) 75 mg PO BID PRN PRN Reason: agitation Trazodone HCl (Trazodone Hcl 50 Mg Tablet) 50 mg PO BEDTIME MRX1 PRN PRN Reason: Insomnia Allergies Allergies Allergy/AdvReac Type Severity Reaction Status Date / Time Penicillins Allergy Anaphylaxis Verified 05/06/25 16:24 Assessment & Plan Assessment & Plan (1) HTN (hypertension): Status: Acute Code(s): I10 - Essential (primary) hypertension Plan patient is a 44 y.o male with hx of HTN, degenerated disc, and bipolar disorder who presents to the ED with suicidal thoughts. On admission- Report that his mental health has been worsening over the past 7-10 days. Report that his depression has been worsening significantly and he is having SI I do not want to wake up. I do not want to be around. I am really low. I hate myself . . Do not want to be here anymore. Patient reports he has been compliant with meds but symptoms have got worst. Denies substance use and has been clean for 2 years. [facility] [place] Hospital course: 05/06/25: Continue with all home meds. Patient does not want medication change at this time. He is depresed and anxious. Could benefit with Lamictal at higher dose .Currently taking 200mg daily. Wellbutrin XL 450mg daily for depression/anxiety. Lisnopril for HTN Seroquel 25mg TID PRN for severe anxiety/insomnia. 05/07: continue current tx plan for now per pt preference Plan Patient on 15 minute checks for safety. Admitted to M3. CV. Work with treatment team to do collateral. [facility] [place]. Not sure if he is able to return. Contact the hospitalist regarding hospitalist consultation on admission: pending H&P Patient educated on: medication risk/benefits Informed Consent: understands Reason for continued inpatient stay Substantial Risk for: harm to self and med/psych decompensation Time Spent With Patient Time: Total time managing care of this patient today ____ minutes.
[2025-05-08 07:00] VITALS: BMI 29.3
[2025-05-08 08:33] VITALS: BP 115/73; PULSE 103; RESP 14; TEMP 36.8; O2SAT 97
[2025-05-08] MEDS: buPROPion HCl XL 150 MG TAB.ER.24H PO (08:41)
[2025-05-08] MEDS: buPROPion HCl XL 300 MG TAB.ER.24H PO (08:41)
--- NOTE | 2025-05-08 11:49 | P.PNPSI_ITS ---
Subjective Subjective Date of Service: 05/08/25 Reason For Visit: depression, si Subjective Notes: Conditional Voluntary Interim History: Chart reviewed, case discussed w/ tx team Pt reports that he's anxious after meeting w/ SW and discussing likely plan to d/c on Monday after meeting w/ [facility] (per plan discussed in team). He feels like it would be helpful to stay till Tu or Wed so that he can settle his nerves more. He is anxious about moving on to the next step, which would involve moving into a sober house. He states that he's never been independent. Had lived in a dorm, then w/ girl friends and now at the [facility]. He reports that he's never dispensed his own meds, doesn't know if he could do it He denies SI. Declines to adjust his meds. Mental Status Exam Mental Status Exam Narrative: Appearance: Casually dressed. Grooming/hygiene wnl. Good eye contact. Sitting by the phone Attitude:Cooperative Speech: Fluent and wnl in regard to volume, tone, prosody Motor activity: Calm and without any tics, tremors or dyskinesias. Steady gait Mood: anxious Affect: appropriate, reactive, superfically bright Thought process: goal directed and without evidence of formal thought disorder Thought content: as noted above. Perception: does not appear to respond to internal stimuli Alert/oriented in all spheres Cognition grossly intact Insight: intact Judgment: intact Diagnostics Vital Signs (24Hr): Vital Signs - 24 hr 05/08/25 08:33 Temperature 98.3 F Pulse Rate 103 H Respiratory Rate 14 Blood Pressure 115/73 Pulse Oximetry 97 Oxygen Delivery Method Room Air BMI result Body Mass Index 29.3 Labs 05/07/25 07:40 05/07/25 07:40 Labs: Laboratory Results - last 48 hr 05/07/25 07:40 WBC 7.3 RBC 5.37 Hgb 15.5 Hct 45.3 MCV 84.4 MCH 28.9 MCHC 34.2 RDW 11.9 Plt Count 271 MPV 8.9 L Immature Gran % (Auto) 0.5 H Neut % (Auto) 65.7 Lymph % (Auto) 23.9 [place] % (Auto) 5.7 Eos % (Auto) 3.4 Baso % (Auto) 0.8 Lymph # (Auto) 1.8 [place] # (Auto) 0.4 Eos # (Auto) 0.3 Baso # (Auto) 0.1 Abs Immat Gran (auto) 0.04 H Absolute Neuts (auto) 4.8 Absolute Nucleated RBC 0.000 Nucleated RBC % (auto) 0.0 Sodium 141 Potassium 4.7 Chloride 106 Carbon Dioxide 28 Anion Gap 12 BUN 34 H Creatinine 1.45 H Estim Creat Clear Calc 72.5 Estimated GFR 52 Random Glucose 105 Estimat Average Glucose 111 Hemoglobin A1c % 5.5 Calcium 9.5 Total Bilirubin 0.4 AST 28 ALT 38 Alkaline Phosphatase 65 Total Protein 7.4 Albumin 4.9 Triglycerides 114 Cholesterol 201 H LDL Cholesterol, Calc 141 H HDL Cholesterol 38 L Medications Medications Current Medications Acetaminophen (Acetaminophen 325 Mg Tablet) 650 mg PO Q6H PRN PRN Reason: Headache/Pain, Scale 1-10 Al Hydroxide/Mg Hydroxide (Magnesium Hydrox/Alum Hydrox 30 Ml Oral.Susp) 30 ml PO Q6H PRN PRN Reason: Heartburn/Nausea Bupropion HCl (Bupropion Hcl Xl 300 Mg Tab.Er.24h) 300 mg PO DAILY [facility] Last Admin: 05/08/25 08:41 Dose: 300 mg Bupropion HCl (Bupropion Hcl Xl 150 Mg Tab.Er.24h) 150 mg PO DAILY [facility] Last Admin: 05/08/25 08:41 Dose: 150 mg Cyclobenzaprine HCl (Cyclobenzaprine Hcl 5 Mg Tablet) 5 mg PO TID PRN PRN Reason: Muscle Spasm Last Admin: 05/07/25 20:13 Dose: 5 mg Hydroxyzine HCl (Hydroxyzine Hcl 25 Mg Tablet) 25 mg PO Q6H PRN PRN Reason: mild anxiety Last Admin: 05/07/25 20:12 Dose: 25 mg Lamotrigine (Lamotrigine 100 Mg Tablet) 200 mg PO DAILY [facility] Last Admin: 05/08/25 08:41 Dose: 200 mg Lisinopril (Lisinopril 20 Mg Tablet) 20 mg PO DAILY [facility]; Protocol Last Admin: 05/08/25 08:41 Dose: 20 mg Magnesium Hydroxide (Milk Of Magnesia 30 Ml Oral.Susp) 30 ml PO DAILY PRN PRN Reason: Constipation Naproxen (Naproxen 500 Mg Tablet) 500 mg PO BID [facility] Last Admin: 05/08/25 08:41 Dose: Not Given Nicotine Polacrilex (Nicotine Polacrilex 2 Mg Gum) 2 mg BUCCAL Q2H PRN PRN Reason: Nicotine Cravings Omeprazole (Omeprazole 20 Mg Capsule.) 20 mg PO DAILY@0630 [facility] Last Admin: 05/08/25 06:23 Dose: 20 mg Quetiapine Fumarate (Quetiapine Fumarate 25 Mg Tablet) 25 mg PO TID PRN PRN Reason: anxiety or Insomnia Quetiapine Fumarate (Quetiapine Fumarate 25 Mg Tablet) 75 mg PO BID PRN PRN Reason: agitation Trazodone HCl (Trazodone Hcl 50 Mg Tablet) 50 mg PO BEDTIME MRX1 PRN PRN Reason: Insomnia Allergies Allergies Allergy/AdvReac Type Severity Reaction Status Date / Time Penicillins Allergy Anaphylaxis Verified 05/06/25 16:24 Assessment & Plan Assessment & Plan (1) HTN (hypertension): Status: Acute Code(s): I10 - Essential (primary) hypertension Plan patient is a 44 y.o male with hx of HTN, degenerated disc, and bipolar disorder who presents to the ED with suicidal thoughts. On admission- Report that his mental health has been worsening over the past 7-10 days. Report that his depression has been worsening significantly and he is having SI I do not want to wake up. I do not want to be around. I am really low. I hate myself . . Do not want to be here anymore. Patient reports he has been compliant with meds but symptoms have got worst. Denies substance use and has been clean for 2 years. [facility] [place] Plan Patient on 15 minute checks for safety. Admitted to [facility]3. CV. Work with treatment team to do collateral. [facility] [place]. Not sure if he is able to return. Contact the hospitalist regarding hospitalist consultation on admission: pending H&P Hospital course: 05/06/25: Continue with all home meds. Patient does not want medication change at this time. He is depresed and anxious. Could benefit with Lamictal at higher dose .Currently taking 200mg daily. Wellbutrin XL 450mg daily for depression/anxiety. Lisnopril for HTN Seroquel 25mg TID PRN for severe anxiety/insomnia. 05/07: continue current tx plan for now per pt preference 05/08: Continue current tx plan per pt preference. He will meet w/ his [facility] worker on Monday. Reason for continued inpatient stay Substantial Risk for: med/psych decompensation Time Spent With Patient Time: Total time managing care of this patient today ____ minutes.
--- NOTE | 2025-05-08 17:38 | PC.NURSE ---
Pt refused EKG ordered for today 1700.
[2025-05-09] MEDS: buPROPion HCl XL 150 MG TAB.ER.24H PO (08:47)
[2025-05-09] MEDS: buPROPion HCl XL 300 MG TAB.ER.24H PO (08:47)
--- NOTE | 2025-05-09 09:24 | HO.PSYCHPN ---
Subjective Subjective Date of Service: 05/09/25 Reason For Visit: depression, si Subjective Notes: Conditional Voluntary Interim History: chart reviewed, case discussed in team Per team discussion- Slept 7 hrs Allowed to return to [facility] will meet w/ him on Monday and discussed plan to d/c after the mtg Doesn't attend grps T/W met w/ pt along w/ SW and HYDROGR[employer]HER student Pt reports feeling better overall since admission due to the therapeutic milieu. He denies SI. Reports feeling very anxious about the potential for d/c on Monday and advocates multiple times to go on Monday instead to calm myself down . He was unable to articulate how the additional day here would benefit him and was not able to identify any concerns about returning to [facility] aside from the future plan of moving on to the next step w/ their support. Pt is aware of the plan to meet w/ [facility] on Monday and expressed some anxiety about the meeting. T/W asked if pt wanted to adjust his meds to optimize tx of anxiety/depression. He said he would be willing to increase the lamotrigine but when t/w told him that we are still planning to d/c him on Monday after the [facility] mtg, he said to keep the meds where they're at. Pt again shared that he's never lived on his own. He's lived in a dorm and then w/ girlfriends. 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 Medication Compliance: Yes Side effects from medications: No Mental Status Exam Mental Status Exam Narrative: Appearance: Casually dressed. Grooming/hygiene wnl. Good eye contact. Attitude:Cooperative Speech: Fluent and wnl in regard to volume, tone, prosody Motor activity: Calm and without any tics, tremors or dyskinesias. Steady gait Mood: anxious Affect: appropriate, reactive Thought process: goal directed Thought content: as noted above. Denies SI. Does not endorse violent ideation Perception: does not appear to respond to internal stimuli Alert/oriented in all spheres Insight: fair Judgment: fair Diagnostics Vital Signs (24Hr): BMI result Body Mass Index 29.3 Labs 05/07/25 07:40 05/07/25 07:40 Medications Medications Current Medications Acetaminophen (Acetaminophen 325 Mg Tablet) 650 mg PO Q6H PRN PRN Reason: Headache/Pain, Scale 1-10 Last Admin: 05/08/25 12:17 Dose: 650 mg Al Hydroxide/Mg Hydroxide (Magnesium Hydrox/Alum Hydrox 30 Ml Oral.Susp) 30 ml PO Q6H PRN PRN Reason: Heartburn/Nausea Bupropion HCl (Bupropion Hcl Xl 300 Mg Tab.Er.24h) 300 mg PO DAILY [facility] Last Admin: 05/09/25 08:47 Dose: 300 mg Bupropion HCl (Bupropion Hcl Xl 150 Mg Tab.Er.24h) 150 mg PO DAILY [facility] Last Admin: 05/09/25 08:47 Dose: 150 mg Cyclobenzaprine HCl (Cyclobenzaprine Hcl 5 Mg Tablet) 5 mg PO TID PRN PRN Reason: Muscle Spasm Last Admin: 05/08/25 21:00 Dose: 5 mg Hydroxyzine HCl (Hydroxyzine Hcl 25 Mg Tablet) 25 mg PO Q6H PRN PRN Reason: mild anxiety Last Admin: 05/08/25 21:00 Dose: 25 mg Lamotrigine (Lamotrigine 100 Mg Tablet) 200 mg PO DAILY [facility] Last Admin: 05/09/25 08:47 Dose: 200 mg Lisinopril (Lisinopril 20 Mg Tablet) 20 mg PO DAILY [facility]; Protocol Last Admin: 05/09/25 09:13 Dose: Not Given Magnesium Hydroxide (Milk Of Magnesia 30 Ml Oral.Susp) 30 ml PO DAILY PRN PRN Reason: Constipation Naproxen (Naproxen 500 Mg Tablet) 500 mg PO BID [facility] Last Admin: 05/09/25 08:48 Dose: 500 mg Nicotine Polacrilex (Nicotine Polacrilex 2 Mg Gum) 2 mg BUCCAL Q2H PRN PRN Reason: Nicotine Cravings Omeprazole (Omeprazole 20 Mg Capsule.Dr) 20 mg PO DAILY@0630 [facility] Last Admin: 05/09/25 06:35 Dose: 20 mg Quetiapine Fumarate (Quetiapine Fumarate 25 Mg Tablet) 25 mg PO TID PRN PRN Reason: anxiety or Insomnia Last Admin: 05/08/25 12:20 Dose: 25 mg Quetiapine Fumarate (Quetiapine Fumarate 25 Mg Tablet) 75 mg PO BID PRN PRN Reason: agitation Trazodone HCl (Trazodone Hcl 50 Mg Tablet) 50 mg PO BEDTIME MRX1 PRN PRN Reason: Insomnia Allergies Allergies Allergy/AdvReac Type Severity Reaction Status Date / Time Penicillins Allergy Anaphylaxis Verified 05/06/25 16:24 Assessment & Plan Assessment & Plan (1) Bipolar disorder, unspecified: Status: Acute Code(s): F31.9 - Bipolar disorder, unspecified (2) HTN (hypertension): Status: Acute Code(s): I10 - Essential (primary) hypertension Plan patient is a 44 y.o male with hx of HTN, degenerated disc, and bipolar disorder who presents to the ED with suicidal thoughts. On admission- Report that his mental health has been worsening over the past 7-10 days. Report that his depression has been worsening significantly and he is having SI I do not want to wake up. I do not want to be around. I am really low. I hate myself . . Do not want to be here anymore. Patient reports he has been compliant with meds but symptoms have got worst. Denies substance use and has been clean for 2 years. [facility] [place]. Plan Patient on 15 minute checks for safety. Admitted to [facility]. CV. Work with treatment team to do collateral. Patient has been staying [facility] [place]. Not sure if he is able to return. Contact the hospitalist regarding hospitalist consultation on admission: pending H&P Hospital course: 05/06/25: Continue with all home meds. Patient does not want medication change at this time. He is depressed and anxious. Could benefit with Lamictal at higher dose .Currently taking 200mg daily. Wellbutrin XL 450mg daily for depression/anxiety. Lisnopril for HTN Seroquel 25mg TID PRN for severe anxiety/insomnia. 05/07: continue current tx plan for now per pt preference 05/08: Continue current tx plan per pt preference. He will meet w/ his [facility] worker on Monday. 05/09: Reviewed plan with pt to d/c on Monday back to [facility] after [facility] mtg. Pt is very anxious about discharging but report that he feels safe at [facility] and denies any SI. He has worked and had relationships in the past but is very anxious about eventually living on his own since he's always lived w/ someone else. 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 Reason for continued inpatient stay Substantial Risk for: med/psych decompensation Time Spent With Patient Time: Total time managing care of this patient today ____ minutes.
[2025-05-10] MEDS: buPROPion HCl XL 300 MG TAB.ER.24H PO (08:47)
[2025-05-10] MEDS: buPROPion HCl XL 150 MG TAB.ER.24H PO (08:48)
[2025-05-10 10:14] VITALS: BP 133/82; PULSE 95; RESP 17; TEMP 37; O2SAT 96
[2025-05-10 20:00] VITALS: BP 115/68; PULSE 95; RESP 16; TEMP 36.6; O2SAT 96
--- NOTE | 2025-05-10 23:17 | HO.PSYCHPN ---
Subjective Subjective Date of Service: 05/10/25 Reason For Visit: depression, si Subjective Notes: Conditional Voluntary Healthcare Proxy: No Guardianship: No Medical Problems Affecting Mental Status: No Interim History: Medical record and nursing notes reviewed; case discussed during rounds with team/nursing staff, and met with patient for supportive therapy/psychoeducation, as well as medication management. Patient reports feeling better, happy that he is able to return to [facility], but feel like he is not the ready mentally. He is more visible, brighter, happier affect. Denies any safety concerns, denies suicidal thoughts. Very calm cooperative and polite upon approach. Denies side effects. Per nursing patient slept for 7+ hours, refused vital signs and refused lisinopril yesterday. Continue with current treatment plan Medication Compliance: Yes Side effects from medications: No Attending Groups: Intermittent Review of Systems Acute medical concerns: No Medical Review of Systems: unchanged Review of Systems Review of Systems Constitutional: Denies fatigue and Denies fever(s) Cardiovascular: Denies chest pain and Denies dyspnea Respiratory: Denies dyspnea Gastrointestinal: Denies abdominal pain Psychiatric: denies suicidal ideation Endocrine: Denies fatigue Yes all other systems are reviewed and are negative Mental Status Exam Mental Status Exam Narrative: Appearance: Casually dressed. Grooming/hygiene wnl. Good eye contact. Attitude:Cooperative Speech: Fluent and wnl in regard to volume, tone, prosody Motor activity: Calm and without any tics, tremors or dyskinesias. Steady gait Mood: brighter and happier. Affect: appropriate, reactive Thought process: goal directed Thought content: as noted above. Denies SI. Does not endorse violent ideation Perception: does not appear to respond to internal stimuli Alert/oriented in all spheres Insight: fair Judgment: fair Diagnostics Vital Signs (24Hr): Vital Signs - 24 hr 05/10/25 10:14 05/10/25 20:00 Temperature 98.6 F 97.9 F Pulse Rate 95 95 Respiratory Rate 17 16 Blood Pressure 133/82 115/68 Pulse Oximetry 96 96 Oxygen Delivery Method Room Air Room Air BMI result Body Mass Index 29.3 Labs 05/07/25 07:40 05/07/25 07:40 Medications Medications Current Medications Acetaminophen (Acetaminophen 325 Mg Tablet) 650 mg PO Q6H PRN PRN Reason: Headache/Pain, Scale 1-10 Last Admin: 05/08/25 12:17 Dose: 650 mg Al Hydroxide/Mg Hydroxide (Magnesium Hydrox/Alum Hydrox 30 Ml Oral.Susp) 30 ml PO Q6H PRN PRN Reason: Heartburn/Nausea Bupropion HCl (Bupropion Hcl Xl 300 Mg Tab.Er.24h) 300 mg PO DAILY [facility] Last Admin: 05/10/25 08:47 Dose: 300 mg Bupropion HCl (Bupropion Hcl Xl 150 Mg Tab.Er.24h) 150 mg PO DAILY [facility] Last Admin: 05/10/25 08:48 Dose: 150 mg Cyclobenzaprine HCl (Cyclobenzaprine Hcl 5 Mg Tablet) 5 mg PO TID PRN PRN Reason: Muscle Spasm Last Admin: 05/10/25 20:28 Dose: 5 mg Hydroxyzine HCl (Hydroxyzine Hcl 25 Mg Tablet) 25 mg PO Q6H PRN PRN Reason: mild anxiety Last Admin: 05/09/25 18:33 Dose: 25 mg Lamotrigine (Lamotrigine 100 Mg Tablet) 200 mg PO DAILY [facility] Last Admin: 05/10/25 08:47 Dose: 200 mg Lisinopril (Lisinopril 20 Mg Tablet) 20 mg PO DAILY [facility]; Protocol Last Admin: 05/10/25 10:15 Dose: 20 mg Magnesium Hydroxide (Milk Of Magnesia 30 Ml Oral.Susp) 30 ml PO DAILY PRN PRN Reason: Constipation Naproxen (Naproxen 500 Mg Tablet) 500 mg PO BID [facility] Last Admin: 05/10/25 20:29 Dose: 500 mg Nicotine Polacrilex (Nicotine Polacrilex 2 Mg Gum) 2 mg BUCCAL Q2H PRN PRN Reason: Nicotine Cravings Omeprazole (Omeprazole 20 Mg Capsule.Dr) 20 mg PO DAILY@0630 [facility] Last Admin: 05/10/25 06:34 Dose: 20 mg Quetiapine Fumarate (Quetiapine Fumarate 25 Mg Tablet) 25 mg PO TID PRN PRN Reason: anxiety or Insomnia Last Admin: 05/10/25 20:30 Dose: 25 mg Quetiapine Fumarate (Quetiapine Fumarate 25 Mg Tablet) 75 mg PO BID PRN PRN Reason: agitation Trazodone HCl (Trazodone Hcl 50 Mg Tablet) 50 mg PO BEDTIME MRX1 PRN PRN Reason: Insomnia Allergies Allergies Allergy/AdvReac Type Severity Reaction Status Date / Time Penicillins Allergy Anaphylaxis Verified 05/06/25 16:24 Assessment & Plan Assessment & Plan (1) Bipolar disorder, unspecified: Status: Acute Code(s): F31.9 - Bipolar disorder, unspecified (2) HTN (hypertension): Status: Acute Code(s): I10 - Essential (primary) hypertension Plan patient is a 44 y.o male with hx of HTN, degenerated disc, and bipolar disorder who presents to the ED with suicidal thoughts. On admission- Report that his mental health has been worsening over the past 7-10 days. Report that his depression has been worsening significantly and he is having SI I do not want to wake up. I do not want to be around. I am really low. I hate myself . . Do not want to be here anymore. Patient reports he has been compliant with meds but symptoms have got worst. Denies substance use and has been clean for 2 years. [facility] [place]. Plan Patient on 15 minute checks for safety. Admitted to [facility]. CV. Work with treatment team to do collateral. [facility] [place]. Not sure if he is able to return. Contact the hospitalist regarding hospitalist consultation on admission: pending H&P Hospital course: 05/06/25: Continue with all home meds. Patient does not want medication change at this time. He is depressed and anxious. Could benefit with Lamictal at higher dose .Currently taking 200mg daily. Wellbutrin XL 450mg daily for depression/anxiety. Lisnopril for HTN Seroquel 25mg TID PRN for severe anxiety/insomnia. 05/07: continue current tx plan for now per pt preference 05/08: Continue current tx plan per pt preference. He will meet w/ his [facility] worker on Monday. 05/09: Reviewed plan with pt to d/c on Monday back to [facility] after [facility] mtg. Pt is very anxious about discharging but report that he feels safe at [facility] and denies any SI. He has worked and had relationships in the past but is very anxious about eventually living on his own since he's always lived w/ someone else. 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 05/10/25: Patient reports feeling better, happy that he is able to return to [facility], but feel like he is not the ready mentally. He is more visible, brighter, happier affect. Denies any safety concerns, denies suicidal thoughts. Very calm cooperative and polite upon approach. Denies side effects. Per nursing patient slept for 7+ hours, refused vital signs and refused lisinopril yesterday. Continue with current treatment plan Patient educated on: medication risk/benefits and therapeutic strategies Informed Consent: understands Reason for continued inpatient stay Substantial Risk for: med/psych decompensation Time Spent With Patient Time: Total time managing care of this patient today ____ minutes.
[2025-05-11 09:58] VITALS: BP 119/67; PULSE 93; RESP 17; TEMP 37.2; O2SAT 96
[2025-05-11] MEDS: buPROPion HCl XL 150 MG TAB.ER.24H PO (09:58)
[2025-05-11] MEDS: buPROPion HCl XL 300 MG TAB.ER.24H PO (09:59)
[2025-05-11 20:00] VITALS: BP 115/62; PULSE 91; RESP 16; TEMP 36.7
--- NOTE | 2025-05-11 21:32 | HO.PSYCHPN ---
Subjective Subjective Date of Service: 05/11/25 Reason For Visit: depression, si Subjective Notes: Conditional Voluntary Healthcare Proxy: No Guardianship: No Medical Problems Affecting Mental Status: No Interim History: Medical record and nursing notes reviewed; case discussed during rounds with team/nursing staff, and met with patient for supportive therapy/psychoeducation, as well as medication management. Patient is visible, pleasant and cooperative. Report anxious related to possible discharge tomorrow but he hope for Monday. He appears anxious going back to [facility]. Denies SI/SIB/HI/AVH. Appear not being ready for tomorrow discharge. Showered and shaved this morning, slept for 7-8 hours. Medication Compliance: Yes Side effects from medications: No Attending Groups: Intermittent Review of Systems Acute medical concerns: No Medical Review of Systems: unchanged Review of Systems Review of Systems Constitutional: Denies fatigue and Denies fever(s) Cardiovascular: Denies chest pain and Denies dyspnea Respiratory: Denies dyspnea Gastrointestinal: Denies abdominal pain Psychiatric: denies suicidal ideation Endocrine: Denies fatigue Yes all other systems are reviewed and are negative Mental Status Exam Mental Status Exam Narrative: Appearance: Casually dressed. Grooming/hygiene wnl. Good eye contact. Attitude:Cooperative Speech: Fluent and wnl in regard to volume, tone, prosody Motor activity: Calm and without any tics, tremors or dyskinesias. Steady gait Mood: anxious regarding possible discharge tomorrow. . Affect: appropriate, reactive Thought process: goal directed but feel like he is not ready to return to [facility]. Thought content: as noted above. Denies SI. Does not endorse violent ideation Perception: does not appear to respond to internal stimuli Alert/oriented in all spheres Insight: fair Judgment: fair Diagnostics Vital Signs (24Hr): Vital Signs - 24 hr 05/11/25 09:58 05/11/25 09:58 05/11/25 20:00 Temperature 98.9 F 98.1 F Pulse Rate 93 91 Respiratory Rate 17 16 Blood Pressure 119/67 119/67 115/62 Pulse Oximetry 96 Oxygen Delivery Method Room Air Room Air BMI result Body Mass Index 29.3 Labs 05/07/25 07:40 05/07/25 07:40 Medications Medications Current Medications Acetaminophen (Acetaminophen 325 Mg Tablet) 650 mg PO Q6H PRN PRN Reason: Headache/Pain, Scale 1-10 Last Admin: 05/08/25 12:17 Dose: 650 mg Al Hydroxide/Mg Hydroxide (Magnesium Hydrox/Alum Hydrox 30 Ml Oral.Susp) 30 ml PO Q6H PRN PRN Reason: Heartburn/Nausea Bupropion HCl (Bupropion Hcl Xl 300 Mg Tab.Er.24h) 300 mg PO DAILY [facility] Last Admin: 05/11/25 09:59 Dose: 300 mg Bupropion HCl (Bupropion Hcl Xl 150 Mg Tab.Er.24h) 150 mg PO DAILY [facility] Last Admin: 05/11/25 09:58 Dose: 150 mg Cyclobenzaprine HCl (Cyclobenzaprine Hcl 5 Mg Tablet) 5 mg PO TID PRN PRN Reason: Muscle Spasm Last Admin: 05/10/25 20:28 Dose: 5 mg Hydroxyzine HCl (Hydroxyzine Hcl 25 Mg Tablet) 25 mg PO Q6H PRN PRN Reason: mild anxiety Last Admin: 05/09/25 18:33 Dose: 25 mg Lamotrigine (Lamotrigine 100 Mg Tablet) 200 mg PO DAILY [facility] Last Admin: 05/11/25 09:58 Dose: 200 mg Lisinopril (Lisinopril 20 Mg Tablet) 20 mg PO DAILY [facility]; Protocol Last Admin: 05/11/25 09:58 Dose: 20 mg Magnesium Hydroxide (Milk Of Magnesia 30 Ml Oral.Susp) 30 ml PO DAILY PRN PRN Reason: Constipation Naproxen (Naproxen 500 Mg Tablet) 500 mg PO BID [facility] Last Admin: 05/11/25 20:51 Dose: 500 mg Nicotine Polacrilex (Nicotine Polacrilex 2 Mg Gum) 2 mg BUCCAL Q2H PRN PRN Reason: Nicotine Cravings Omeprazole (Omeprazole 20 Mg Capsule.Dr) 20 mg PO DAILY@0630 [facility] Last Admin: 05/11/25 06:25 Dose: 20 mg Quetiapine Fumarate (Quetiapine Fumarate 25 Mg Tablet) 25 mg PO TID PRN PRN Reason: anxiety or Insomnia Last Admin: 05/10/25 20:30 Dose: 25 mg Quetiapine Fumarate (Quetiapine Fumarate 25 Mg Tablet) 75 mg PO BID PRN PRN Reason: agitation Trazodone HCl (Trazodone Hcl 50 Mg Tablet) 50 mg PO BEDTIME MRX1 PRN PRN Reason: Insomnia Allergies Allergies Allergy/AdvReac Type Severity Reaction Status Date / Time Penicillins Allergy Anaphylaxis Verified 05/06/25 16:24 Assessment & Plan Assessment & Plan (1) Bipolar disorder, unspecified: Status: Acute Code(s): F31.9 - Bipolar disorder, unspecified (2) HTN (hypertension): Status: Acute Code(s): I10 - Essential (primary) hypertension Plan patient is a 44 y.o male with hx of HTN, degenerated disc, and bipolar disorder who presents to the ED with suicidal thoughts. On admission- Report that his mental health has been worsening over the past 7-10 days. Report that his depression has been worsening significantly and he is having SI I do not want to wake up. I do not want to be around. I am really low. I hate myself . . Do not want to be here anymore. Patient reports he has been compliant with meds but symptoms have got worst. Denies substance use and has been clean for 2 years. [facility] [place]. Plan Patient on 15 minute checks for safety. Admitted to [facility]. CV. Work with treatment team to do collateral. [facility] [place]. Not sure if he is able to return. Contact the hospitalist regarding hospitalist consultation on admission: pending H&P Hospital course: 05/06/25: Continue with all home meds. Patient does not want medication change at this time. He is depressed and anxious. Could benefit with Lamictal at higher dose .Currently taking 200mg daily. Wellbutrin XL 450mg daily for depression/anxiety. Lisnopril for HTN Seroquel 25mg TID PRN for severe anxiety/insomnia. 05/07: continue current tx plan for now per pt preference 05/08: Continue current tx plan per pt preference. He will meet w/ his [facility] worker on Monday. 05/09: Reviewed plan with pt to d/c on Monday back to [facility] after [facility] mtg. Pt is very anxious about discharging but report that he feels safe at [facility] and denies any SI. He has worked and had relationships in the past but is very anxious about eventually living on his own since he's always lived w/ someone else. 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 05/10/25: Patient reports feeling better, happy that he is able to return to [facility], but feel like he is not the ready mentally. He is more visible, brighter, happier affect. Denies any safety concerns, denies suicidal thoughts. Very calm cooperative and polite upon approach. Denies side effects. Per nursing patient slept for 7+ hours, refused vital signs and refused lisinopril yesterday. Continue with current treatment plan 05/11/25: Patient is visible, pleasant and cooperative. Report anxious related to possible discharge tomorrow but he hope for Monday. He appears anxious going back to [facility]. Denies SI/SIB/HI/AVH. Appear not being ready for tomorrow discharge. Showered and shaved this morning, slept for 7-8 hours. Patient educated on: diagnosis, medication risk/benefits and therapeutic strategies Informed Consent: understands Reason for continued inpatient stay Substantial Risk for: med/psych decompensation Time Spent With Patient Time: Total time managing care of this patient today ____ minutes.
[2025-05-12 08:10] VITALS: BP 151/69; PULSE 103; RESP 16; TEMP 35.9; O2SAT 98
[2025-05-12 08:11] LABS: Anion Gap 15 (12-20); Blood Urea Nitrogen 27 mg/dL (9-16); Calcium 9.4 mg/dL (8.4-10.2); Carbon Dioxide 26 mmol/L (22-29); Chloride 106 mmol/L (96-108); Creatinine Clr Calc Pharmacy 85.7; Estimated Glomerular Filt Rate > 60; Potassium 4.6 mmol/L (3.3-5.1); Sodium 142 mmol/L (135-145)
[2025-05-12] MEDS: buPROPion HCl XL 300 MG TAB.ER.24H PO (08:33)
[2025-05-12] MEDS: buPROPion HCl XL 150 MG TAB.ER.24H PO (08:33)
--- NOTE | 2025-05-12 11:50 | P.DS_ITS ---
DS: Providers Provider Date of Service: 05/12/25 Date of admission: 05/06/25 15:16 Date of discharge: 05/12/25 Primary care physician: [facility] Attending physician on admission: Nimo Bush Consults: 05/06/25 17:42 Consult to Hospitalist Routine Comment: [place]ing [place] [facility] [facility] Reason For Exam: Admission physical Attending physician on discharge: Nimo Bush DS: Diagnosis Discharge Diagnosis (1) Bipolar disorder, unspecified: Status: Acute (2) HTN (hypertension): Status: Acute DS: Medications Discharge Medications Home Medications: Previous Rx's ?Medication ?Instructions ?Recorded acetaminophen 325 mg tablet 650 mg (2 x 325 mg) PO Q6H PRN 05/12/25 Headache/Pain, Scale 1-10 #0 tabs bupropion HCl 150 mg 24 hr tablet, 150 mg PO DAILY 30 days #30 tabs 05/12/25 extended release bupropion HCl 300 mg 24 hr tablet, 300 mg PO DAILY 30 days #30 tabs 05/12/25 extended release cyclobenzaprine 5 mg tablet 5 mg PO BID PRN Muscle Spa sm 14 05/12/25 days #28 tabs hydroxyzine HCl 25 mg tablet 25 mg PO TID PRN mild anx iety 30 05/12/25 days #90 tabs lamotrigine 100 mg tablet 200 mg (2 x 100 mg) PO DAILY 30 05/12/25 days #60 tabs lisinopril 20 mg tablet 20 mg PO DAILY 30 days #30 t abs 05/12/25 naproxen 500 mg tablet 500 mg PO BID 30 days #60 ta bs 05/12/25 omeprazole 20 mg capsule,delayed 20 mg PO DAILY@0630 3 0 days #30 05/12/25 release caps quetiapine 25 mg tablet 25 mg PO TID PRN anxiety or 05/12/25 Insomnia 30 days #90 tabs Mental Status Exam Mental Status Exam Narrative: Appearance: Casually dressed. Grooming/hygiene wnl. Good eye contact Attitude: Cooperative Speech: Fluent and wnl in regard to volume, tone, prosody Motor activity: Calm and without any tics, tremors or dyskinesias. Steady gait Mood: anxious Affect: appropriate, reactive, superficially bright Thought process: goal directed Thought content: Denies SI, violent ideation. Anxious about leaving the hospital but feels safe with plan to discharge. Perception: Denies AH/VH and does not appear to respond to internal stimuli Alert/oriented in all spheres Cognition grossly intact Insight: intact Judgment: intact Data Data Completed and Pending Completed studies during hospitalization [Text1]: 05/07/25 05/12/25 07:40 07:45 WBC 7.3 RBC 5.37 Hgb 15.5 Hct 45.3 MCV 84.4 MCH 28.9 MCHC 34.2 RDW 11.9 Plt Count 271 MPV 8.9 L Immature Gran % (Auto) 0.5 H Neut % (Auto) 65.7 Lymph % (Auto) 23.9 Carroll % (Auto) 5.7 Eos % (Auto) 3.4 Baso % (Auto) 0.8 Lymph # (Auto) 1.8 Carroll # (Auto) 0.4 Eos # (Auto) 0.3 Baso # (Auto) 0.1 Abs Immat Gran (auto) 0.04 H Absolute Neuts (auto) 4.8 Absolute Nucleated RBC 0.000 Nucleated RBC % (auto) 0.0 Sodium 141 142 Potassium 4.7 4.6 Chloride 106 106 Carbon Dioxide 28 26 Anion Gap 12 15 BUN 34 H 27 H Creatinine 1.45 H 1.23 Estim Creat Clear Calc 72.5 85.7 Estimated GFR 52 > 60 Random Glucose 105 97 Estimat Average Glucose 111 Hemoglobin A1c % 5.5 Calcium 9.5 9.4 Total Bilirubin 0.4 AST 28 ALT 38 Alkaline Phosphatase 65 Total Protein 7.4 Albumin 4.9 Triglycerides 114 Cholesterol 201 H LDL Cholesterol, Calc 141 H HDL Cholesterol 38 L DS: Summary Time Spent with Patient Time attestation: Total time managing care of this patient today ____ minutes. 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 Discharge Medications: New cyclobenzaprine 5 mg Tablet 5 mg PO BID PRN (Reason: Muscle Spasm) 14 Days Qty: 28 0RF lisinopril 20 mg Tablet 20 mg PO DAILY 30 Days Qty: 30 0RF Protocol: Hold for SBP< HOLD for SBP < : 90 acetaminophen 325 mg Tablet 650 mg PO Q6H PRN (Reason: Headache/Pain, Scale 1-10) Qty: 0 0RF bupropion HCl 150 mg Tablet Extended Release 24 Hr 150 mg PO DAILY 30 Days Qty: 30 0RF bupropion HCl 300 mg Tablet Extended Release 24 Hr 300 mg PO DAILY 30 Days Qty: 30 0RF hydroxyzine HCl 25 mg Tablet 25 mg PO TID PRN (Reason: mild anxiety) 30 Days Qty: 90 0RF lamotrigine 100 mg Tablet 200 mg PO DAILY 30 Days Qty: 60 0RF naproxen 500 mg Tablet 500 mg PO BID 30 Days Qty: 60 0RF quetiapine 25 mg Tablet 25 mg PO TID PRN (Reason: anxiety or Insomnia) 30 Days Qty: 90 0RF omeprazole 20 mg Capsule,Delayed Release(Dr/Ec) 20 mg PO DAILY@0630 30 Days Qty: 30 0RF Discontinued quetiapine 25 mg tablet 25 mg PO TID PRN (Reason: anxiety or Insomnia) lamotrigine 200 mg tablet 200 mg PO DAILY lisinopril 40 mg tablet 40 mg PO DAILY naproxen 500 mg tablet 500 mg PO BID hydroxyzine pamoate 25 mg capsule 25 mg PO BID PRN (Reason: anxiety) cyclobenzaprine 5 mg tablet 5 mg PO TID PRN (Reason: muscle spasm) bupropion HCl 300 mg tablet extended release 24 hr 300 mg PO DAILY bupropion HCl 150 mg tablet extended release 24 hr 150 mg PO DAILY Discharge Orders: Discharge Order (Routine); Ordered 05/12/25 Ordered By: Nimo Bush Diet: Regular diet Activity on Discharge: No Restrictions Stand Alone Forms: Patient Portal Discharge page Print Language: Japanese Care Plan Goals: Maintain safe behaviors Practice coping skills Take medications as prescribed Continue to pursue sobriety Maintain regular follow-ups with your outpatient providers Health Concerns: Depression, anxiety Plan of Treatment: Follow up with your psychiatric provider, PCP and other outpatient providers Take your medication as prescribed Assessment: Risk assessment at the time of discharge: Patient was interviewed on the day of discharge and found to be fully oriented, without any SI or violent ideation. Insight and judgment are intact Pt is at low risk of harm to self and others and has a safety plan that includes presenting to the closest ER or calling 911 if feeling unsafe. Pt has been observed closely by unit staff and has not engaged in any behaviors that suggest dangerous to self or others and has demonstrated appropriate bheaviors and impulse control.
== END 2025-05-12 13:15 | disposition home or self-care (01) | DRG 753 ==
PROVIDERS: Nurse Practitioner Family; Admitting Provider Psychiatry & Neurology Psychiatry; PCP Dentist General Practice; Visit Provider Psychiatry & Neurology Psychiatry
DX: F31.9 Bipolar disorder, unspecified (principal); R45.851 Suicidal ideations; I10 Essential (primary) hypertension; Z87.891 Personal history of nicotine dependence; Z79.899 Other long term (current) drug therapy
CPT/HCPCS: 36415; 80048; 80053; 80061; 83036; 85025; 93005

== ENCOUNTER → 2025-05-06 15:16 | Outpatient (BNV) | payer OTHER, SELFPAY | PROVIDERS: Admitting Provider Psychiatry & Neurology Psychiatry; PCP Dentist General Practice; Visit Provider Nurse Practitioner Psychiatric/Mental Health | DX: F31.4 Bipolar disorder, current episode depressed, severe, without psychotic features (principal) | CPT/HCPCS: 99231; 99232 ==

== ENCOUNTER → 2025-05-06 15:16 | Outpatient (BNV) | payer MEDICAID, SELFPAY | PROVIDERS: Admitting Provider Psychiatry & Neurology Psychiatry; PCP Dentist General Practice; Visit Provider Nurse Practitioner Family | DX: I10 Essential (primary) hypertension (principal) | CPT/HCPCS: 99221 ==